=== PATIENT | male | born 1955 | race Caucasian/White ===

== ENCOUNTER 2016-11-08 13:59 | Inpatient (IN) | payer OTHER ==
[~2016-11-08] VITALS: Ht 177.8 cm; Wt 95.8 kg
[~2016-11-08 13:59] MED LIST: HYDR-971 PO
[2016-11-08 16:29] VITALS: BP 176/109
[2016-11-08] MEDS ORDERED: FUROSEMIDE 40 MG/4 ML VIAL IVP ONE (16:45)
[2016-11-08] MEDS ORDERED: HYDR-2666 PO (17:15)
[2016-11-08] MEDS ORDERED: TRAM50TA PO (17:15)
[2016-11-08] MEDS ORDERED: LEDI1TAB PO (17:17)
[2016-11-08] MEDS ORDERED: MELA3TAB PO (17:17)
[2016-11-08] MEDS ORDERED: TRAZ50TA15 PO (17:17)
[2016-11-08] MEDS ORDERED: THIA100T43 PO (17:17)
[2016-11-08] MEDS: ENOXAPARIN 40 MG/0.4 ML DISP.SYRIN. SQ SCH ×2 (17:26→17:29)
[2016-11-08 17:29] LABS: HCO3 ABG 26 mmol/L (21-28); PCO2 ABG 37 mmHg (35-46); PH ABG 7.47 (7.35-7.45); PO2 ABG 102 mmHg (65-108); SAT O2 ABG 98 % (92-99)
[2016-11-08 17:31] LABS: FIO2 ABG 36
[2016-11-08] MEDS ORDERED: HYDROCODONE/APAP 5/325MG TABLET. PO PRN (18:15)
[2016-11-08] MEDS ORDERED: TRAMADOL 50 MG TABLET. PO SCH (18:15)
[2016-11-08] MEDS ORDERED: ALPRAZOLAM 0.5 MG TABLET PO PRN (19:15)
[2016-11-08] MEDS: HYDROCODONE/APAP 5/325MG TABLET. PO PRN (19:39)
[2016-11-08 19:40] VITALS: BP 172/109
[2016-11-08] MEDS ORDERED: VANCOMYCIN PER PHARMACY MC PRN (20:30)
[2016-11-08] MEDS ORDERED: PIP/TAZO PER PHARMACY MC PRN (20:30)
[2016-11-08] MEDS ORDERED: CALC667T PO (20:39)
[2016-11-08] MEDS ORDERED: FOLI1TAB16 PO (20:39)
[2016-11-08] MEDS ORDERED: POLY17PO5 PO (20:39)
[2016-11-08] MEDS ORDERED: TIZA4CAP PO (20:39)
[2016-11-08] MEDS ORDERED: CEPH-263 PO (20:39)
[2016-11-08] MEDS ORDERED: ERGO1TAB PO (20:39)
[2016-11-08] MEDS: traZODone 50 MG TABLET. PO SCH (21:00)
[2016-11-08] MEDS ORDERED: NON FORMULARY ITEM (Melatonin 2 TAB) PO SCH (21:00)
[2016-11-08 23:10] VITALS: BP 155/108
[2016-11-08] MEDS ORDERED: tiZANidine 4 MG TABLET. PO PRN (23:45)
--- NOTE | 2016-11-09 00:06 | HP ---
ADMIT DATE: 11/08/2016 CHIEF COMPLAINT: Shortness of breath. HISTORY OF PRESENT ILLNESS: The patient is a pleasant 60-year-old male who has known heart failure, sees Dr. Myers for this. He has a permanent pacemaker as well. Basically, he presents with progression of shortness of breath and weakness. I have discussed the case with the ER physician at [facility], we are accepting as a transfer. PAST MEDICAL HISTORY: CHF, anemia, chronic pain, insomnia. ALLERGIES: Omeprazole. FAMILY HISTORY: Hypertension. SOCIAL HISTORY: Does not drink, smoke or take drugs. MEDICATIONS: Reviewed, please refer to the MRAD. REVIEW OF SYSTEMS: GENERAL: No history of weight change, weakness or fevers. SKIN: No bruising, hair changes or rashes. EYES: No blurred, double or loss of vision. NOSE AND THROAT: No history of nosebleeds, hoarseness or sore throat. HEART: No history of palpitations, chest pain or shortness of breath on exertion. LUNGS: Shortness of breath. GASTROINTESTINAL: Denies changes in appetite, nausea, vomiting, diarrhea or constipation. GENITOURINARY: No history of frequency, urgency, hesitancy or nocturia. NEUROLOGIC: Denies history of numbness, tingling, tremor or weakness. PSYCHIATRIC: No history of panic, anxiety or depression. ENDOCRINE: No history of heat or cold intolerance, polyuria or polydipsia. EXTREMITIES: Denies muscle weakness, joint pain, pain on walking or stiffness. PHYSICAL EXAMINATION: VITAL SIGNS: Temperature afebrile, pulse 97, respirations 18, blood pressure 144/90. GENERAL: He is alert, cooperative, complaining of shortness of breath. HEART: Normal S1, S2 with a soft S3. LUNGS: Bibasilar crackles. ABDOMEN: Soft, positive bowel sounds. EXTREMITIES: Trace edema. SKIN: No rashes. PSYCHIATRIC: He is anxious. VASCULAR: Good capillary refill. ENDOCRINE: No thyromegaly. LYMPHATICS: No cervical nodes. HEMATOPOIETIC: No bruising. LABORATORY DATA: Reviewed. ASSESSMENT AND PLAN: Acute on chronic systolic and diastolic heart failure. The patient has been admitted. We will check serial enzymes, serial EKGs, IV Lasix. Consult Dr. Myers. Resume home medicines, frequent labs, cardiac monitoring. PROGNOSIS: Guarded. MARIANNAL Derek ALBERT DO DR: Rosi JOB#: [id number] / [id number]
[2016-11-09] MEDS: PIPERACILLIN/TAZOBACTAM 3.375 GM in IV NORMAL SALINE 50ML 50 ML IV SCH ×4 (00:37→17:49)
[2016-11-09] MEDS: HYDROCODONE/APAP 5/325MG TABLET. PO PRN ×4 (03:27→21:15)
[2016-11-09] MEDS: ONDANSETRON PF 4 MG/2 ML VIAL. IV PRN (03:27)
[2016-11-09 03:45] VITALS: BP 152/112
[2016-11-09 04:02] LABS: BASO # 0.1 x10^3/uL (0.0-0.2); BASO % 1 % (0-3); EOS % 2 % (0-3); HEMATOCRIT 26.2 % (39.0-53.0); HEMOGLOBIN 8.5 g/dL (13.0-17.5); LYMPH # 1.2 x10^3/uL (1.0-4.8); LYMPH % 14 % (24-48); MEAN CORPUSCULAR HEMOGLOBIN 29 pg (25-35); MEAN CORPUSCULAR HGB CONC 32 g/dL (31-37); MEAN CORPUSCULAR VOLUME 89 fL (79-100); MONO % 13 % (0-9); NEUT % 70 % (31-73); PLATELET COUNT 144 x10^3/uL (140-400); RED BLOOD COUNT 2.95 x10^6/uL (4.30-5.70); WHITE BLOOD COUNT 8.6 x10^3/uL (4.0-11.0)
[2016-11-09 04:18] LABS: CALCIUM 8.8 mg/dL (8.5-10.1); CREATININE 2.2 mg/dL (0.7-1.3); GFR 30.8
[2016-11-09 07:47] VITALS: BP 134/96
--- NOTE | 2016-11-09 08:59 | RAD ---
Indication congestive heart failure. Difficulty breathing. Evaluate for potential pneumonia. Noncontrast imaging through the chest was performed. No prior CT imaging of the chest is available. Note is made of a plain film examination of the chest 09/12/2013. Imaging through the upper abdomen demonstrates some ascitic fluid. An acute finding in the visualized upper abdomen is not seen. Old right rib fractures are noted. There is generalized cardiomegaly, mild. There is some mild mediastinal adenopathy. Definite pathologic hilar or mediastinal adenopathy is not seen. There are small bilateral pleural effusions. There is diffuse right pleural thickening, likely chronic. There are patchy bilateral pulmonary infiltrates most pronounced in the left upper lobe. Findings may reflect atypical congestive heart failure or an inflammatory process, pneumonia. The later is somewhat favored. Scattered areas of volume loss are seen in the right lung compatible with atelectasis pneumonia or scar. A dominant soft tissue mass in either lung is not seen. IMPRESSION: Small bilateral pleural effusions. Pleural thickening in the right lung, likely chronic. Patchy groundglass opacities in the left upper lobe. See above discussion. An inflammatory process is somewhat favored accounting for the infiltrates. Small amount of abdominal ascites Volume loss in the right lung most compatible with or scar or atelectasis. Pneumonia is not entirely excluded. PQRS Compliance Statement: One or more of the following individualized dose reduction techniques were utilized for this examination: 1. Automated exposure control 2. Adjustment of the mA and/or kV according to patient size 3. Use of iterative reconstruction technique
[2016-11-09] MEDS ORDERED: FUROSEMIDE 40 MG/4 ML VIAL IVP SCH (09:00)
[2016-11-09] MEDS: NON FORMULARY ITEM (Ledipasvir/Sofosbuvir (Harvoni 90-400 mg Tablet) 1 TAB) PO SCH (09:00)
--- NOTE | 2016-11-09 10:01 | PDOC ---
Infectious Disease Note ROS ROS GEN: Denies fevers, chills, sweats HEENT: Denies blurred vision, sore throat CV: Denies chest pain RESP: Denies shortness of air, cough GI: Denies n/v/d NEURO: Denies confusion, dizziness MSK: Denies weakness, joint pain/swelling Vital Sign Vital Signs Vital Signs Date Time Temp Pulse Resp B/P Pulse Ox O2 Delivery O2 Flow Rate FiO2 11/09/16 07:47 98.1 98 26 134/96 98 Room Air 98.1 11/09/16 04:27 5.0 Physical Exam PHYSICAL EXAM GENERAL: NAD, Alert HEENT: PERRL, OC/OP NECK: Supple, no JVD, no LN LUNGS: Clear HEART: S1S2, no gallop, no murmur ABD: Soft, NT, no organomegaly, no rebound EXT: No edema, no cyanosis VOCATIONAL PLACEMENT SPECIALIST: Alert, oriented x 3, no focal neurologic deficit SKIN: No rash IV: ok Labs Lab Laboratory Tests Test 11/08/16 17:27 11/08/16 20:20 11/09/16 03:54 O2 Saturation 98% (92-99) Arterial Blood pH 7.47 (7.35-7.45) Arterial Blood pCO2 at Patient Temp 37mmHg (35-46) Arterial Blood pO2 at Patient Temp 102mmHg (65-108) Arterial Blood HCO3 26mmol/L (21-28) Arterial Blood Base Excess 3mmol/L (-3-3) FiO2 36 Lactic Acid Level 1.5mmol/L (0.4-2.0) 1.1mmol/L (0.4-2.0) White Blood Count 8.6x10^3/uL (4.0-11.0) Red Blood Count 2.95x10^6/uL (4.30-5.70) Hemoglobin 8.5g/dL (13.0-17.5) Hematocrit 26.2% (39.0-53.0) Mean Corpuscular Volume 89fL (79-100) Mean Corpuscular Hemoglobin 29pg (25-35) Mean Corpuscular Hemoglobin Concent 32g/dL (31-37) Red Cell Distribution Width 18.0% (11.5-14.5) Platelet Count 144x10^3/uL (140-400) Neutrophils (%) (Auto) 70% (31-73) Lymphocytes (%) (Auto) 14% (24-48) Monocytes (%) (Auto) 13% (0-9) Eosinophils (%) (Auto) 2% (0-3) Basophils (%) (Auto) 1% (0-3) Neutrophils # (Auto) 6.0x10^3uL (1.8-7.7) Lymphocytes # (Auto) 1.2x10^3/uL (1.0-4.8) Monocytes # (Auto) 1.1x10^3/uL (0.0-1.1) Eosinophils # (Auto) 0.1x10^3/uL (0.0-0.7) Basophils # (Auto) 0.1x10^3/uL (0.0-0.2) Sodium Level 141mmol/L (136-145) Potassium Level 4.0mmol/L (3.5-5.1) Chloride Level 103mmol/L (98-107) Carbon Dioxide Level 28mmol/L (21-32) Anion Gap 10 (6-14) Blood Urea Nitrogen 66mg/dL (8-26) Creatinine 2.2mg/dL (0.7-1.3) Estimated GFR (Cockcroft-Gault) 30.8 Glucose Level 126mg/dL (70-99) Calcium Level 8.8mg/dL (8.5-10.1) Troponin I Quantitative 0.146ng/mL (0.000-0.055) Objective Assessment Lactic acidosis - improved CHF MAIA ? Pneumonia H/o Staph aureus Plan Plan of Care Cont Zosyn Change to Zyvox Add Doxy F/u labs and cults Await Pul eval Check HIV Thank you # [id number] RAFY PATRICIA MD Nov 09, 2016 10:01
[2016-11-09] MEDS: THIAMINE 100 MG TABLET. PO SCH (10:03)
[2016-11-09] MEDS: CALCIUM ACETATE 667 MG CAPSULE PO SCH ×3 (10:03→17:00)
--- NOTE | 2016-11-09 10:04 | PDOC2 ---
CONSULT Date of Consult Date of Consult DATE: 11/09/16 TIME: 09:49 Reason for Consult Reason for Consult: CHF Referring Physician Referring Physician: Albin Identification/Chief Complaint Chief Complaint Dyspnea History of Present Illness Reason for Visit: Patient is a homeless well known to me with a history of CHF and permanent pacemaker admitted for progressive dyspnea. Patient is a poor historian but reports a recent hospitalization at with discharge on 11/04/2016 secondary to a trauma/fall with subsequent development of complicated pneumonia requiring chest tube. Since his discharge on 11/04/2016 he has been experiencing progressive weakness and dyspnea. He was reportedly on dialysis at but had them stop secondary to "draining all my energy". He is currently homeless and has limited resources available. Since admission he is doing a little better but continues to report some shortness of breath and chest pain that sounds pleuritic in nature as well as some pain near the site of the chest tubes. Nursing reports he was tripoding with some increased work a breathing, a ABG was completed and was found to be essentially normal. He denies any cardiac chest pain but did have a troponin of 0.146. Past Medical History Cardiovascular: CHF Heme/Onc: Other (Anemia) Psych: Anxiety, Other (Insomnia) Musculoskeletal: Other (Chronic pain) Past Surgical History Past Surgical History: Pacemaker Family History Family History: Hypertension Social History Social History Denies current alcohol, drug or tobacco use Lives: Homeless Current Medications Current Medications Current Medications Furosemide (Lasix) 40 mg 1X ONCE IVP Last administered on 11/08/16 17:26; Start 11/08/16 at 16:45; Stop 11/08/16 at 16:48; Status DC Enoxaparin Sodium (Lovenox 40mg Syringe) 40 mg Q24H SQ Last administered on 11/08 17:26; Start 11/08/16 at 17:00 Acetaminophen/ Hydrocodone Bitart (Lortab 5/325) 1 tab PRN Q4HRS PRN PO PAIN Last administered on 11/09/16 03:27; Start 11/08/16 at 18:15 Acetaminophen/ Hydrocodone Bitart (Lortab 5/325) 1 tab Q6HRS PRN PO PAIN; Start 11/08/16 at 18:15; Stop 11/08/16 at 18:15; Status DC Thiamine HCl (Vitamin B-1) 100 mg DAILY PO ; Start 11/09/16 at 09:00 Tramadol HCl (Ultram) 50 mg PRN Q6HRS PO ; Start 11/08/16 at 18:15 Trazodone HCl (Desyrel) 50 mg QHS PO ; Start 11/08/16 at 21:00 Non-Formulary Medication 1 tab DAILY PO ; Start 11/09/16 at 09:00; Status UNV Non-Formulary Medication 2 tab QHS PO ; Start 11/08/16 at 21:00; Status UNV Alprazolam (Xanax) 0.5 mg PRN Q6HRS PRN PO ANXIETY / AGITATION Last administered on 11/08/16 19:38; Start 11/08/16 at 19:15 Vancomycin HCl (Vanco Per Pharmacy) 1 each PRN DAILY PRN MC SEE COMMENTS Last administered on 11/08/16 20:42; Start 11/08/16 at 20:30; Stop 11/09/16 at 09:44; Status DC Piperacillin Sod/ Tazobactam Sod 1 each 1 each PRN DAILY PRN MC SEE COMMENTS; Start 11/08/16 at 20:30 Vancomycin HCl/ Sodium Chloride (Iv Sodium Chloride 0.9% 500ml Bag) 500 ml @ 250 mls/hr Q24H IV ; Start 11/09/16 at 13:00; Stop 11/09/16 at 13:00; Status DC Vancomycin HCl 1 each 1 each 1X ONCE MC ; Start 11/10/16 at 12:30; Stop 11/10/16 at 12:31 Piperacillin Sod/ Tazobactam Sod/ Sodium Chloride (Zosyn/Iv Sodium Chloride 0.9 % 50ml) 50 ml @ 100 mls/hr Q6HRS IV Last administered on 11/09/16 06:45; Start 11/09/16 at 00:00 Calcium Acetate (Phoslo) 1,334 mg TIDWMEALS PO ; Start 11/09/16 at 08:00 Non-Formulary Medication 1 each QTH PO ; Start 11/11/16 at 16:00; Status UNV Tizanidine HCl (Zanaflex) 4 mg PRN Q8HRS PRN PO MUSCLE SPASMS; Start 11/08/16 at 23:45 Furosemide (Lasix) 40 mg DAILY IVP ; Start 11/09/16 at 09:00 Ondansetron HCl (Zofran) 4 mg PRN Q6HRS PRN IV NAUSEA/VOMITING Last administered on 11/09/16t 03:27; Start 11/09/16 at 02:45 Linezolid (Zyvox) 600 mg BID PO ; Start 11/09/16 at 10:00; Status UNV Active Scripts Active [place] 5-325 Tablet (Acetaminophen/Hydrocodone Bitart) 1 Each Tablet 1 Each PO Q6HRS PRN Reported Tizanidine Hcl 4 Mg Capsule 4 Mg PO PRN Q8HRS PRN Miralax (Polyethylene Glycol 3350) 17 Gm Powd.pack 1 Packet PO DAILY Cafergot Tablet (Ergotamine Tartrate/Caffeine) 1 Each Tablet 1 Each PO QTH Folic Acid 1 Mg Tablet 1 Tab PO DAILY Keflex (Cephalexin) 250 Mg Capsule 1 Cap PO Q12HR Calcium Acetate 667 Mg Tablet 2 Cap PO TIDWMEALS Harv[place] 90-400 mg Tablet (Ledipasvir/Sofosbuvir) 1 Each Tablet 1 Tab PO DAILY Trazodone Hcl 50 Mg Tablet 1 Tab PO QHS B-1 (Thiamine HCl) 100 Mg Tablet 100 Mg PO DAILY Melatonin 3 Mg Tablet 2 Tab PO QHS Hydrocodone-Apap 5-325 (Hydrocodone Bit/Acetaminophen) 1 Each Tablet 1 Tab PO PRN Q4HRS PRN Tramadol Hcl 50 Mg Tablet 1 Tab PO PRN Q6HRS Allergies Allergies: Coded Allergies: omeprazole (Verified Allergy, Intermediate, 11/09/16) ROS General: YES: Fatigue PSYCHOLOGICAL ROS: YES: Anxiety Respiratory: YES: Cough, Pleuritic Pain, Shortness of breath Neurological: Yes Headaches Physical Exam General: Alert, No acute distress HEENT: Atraumatic Heart: Regular rate, Normal S1, Normal S2 Abdomen: Normal bowel sounds Extremities: No clubbing, No cyanosis, Other (mild edema of lower extremities, improving) Skin: Other (two healing wounds surreounded by mild erythema secondary to recent chest tube on right) Neuro: Other (no gross focal deficits) Vitals VITALS Vital Signs Date Time Temp Pulse Resp B/P Pulse Ox O2 Delivery O2 Flow Rate FiO2 11/09/16 07:47 98.1 98 26 134/96 98 Room Air 98.1 11/09/16 04:27 5.0 Labs Labs Laboratory Tests Test 11/08/16 17:27 11/08/16 20:20 11/09/16 03:54 O2 Saturation 98% (92-99) Arterial Blood pH 7.47 (7.35-7.45) Arterial Blood pCO2 at Patient Temp 37mmHg (35-46) Arterial Blood pO2 at Patient Temp 102mmHg (65-108) Arterial Blood HCO3 26mmol/L (21-28) Arterial Blood Base Excess 3mmol/L (-3-3) FiO2 36 Lactic Acid Level 1.5mmol/L (0.4-2.0) 1.1mmol/L (0.4-2.0) White Blood Count 8.6x10^3/uL (4.0-11.0) Red Blood Count 2.95x10^6/uL (4.30-5.70) Hemoglobin 8.5g/dL (13.0-17.5) Hematocrit 26.2% (39.0-53.0) Mean Corpuscular Volume 89fL (79-100) Mean Corpuscular Hemoglobin 29pg (25-35) Mean Corpuscular Hemoglobin Concent 32g/dL (31-37) Red Cell Distribution Width 18.0% (11.5-14.5) Platelet Count 144x10^3/uL (140-400) Neutrophils (%) (Auto) 70% (31-73) Lymphocytes (%) (Auto) 14% (24-48) Monocytes (%) (Auto) 13% (0-9) Eosinophils (%) (Auto) 2% (0-3) Basophils (%) (Auto) 1% (0-3) Neutrophils # (Auto) 6.0x10^3uL (1.8-7.7) Lymphocytes # (Auto) 1.2x10^3/uL (1.0-4.8) Monocytes # (Auto) 1.1x10^3/uL (0.0-1.1) Eosinophils # (Auto) 0.1x10^3/uL (0.0-0.7) Basophils # (Auto) 0.1x10^3/uL (0.0-0.2) Sodium Level 141mmol/L (136-145) Potassium Level 4.0mmol/L (3.5-5.1) Chloride Level 103mmol/L (98-107) Carbon Dioxide Level 28mmol/L (21-32) Anion Gap 10 (6-14) Blood Urea Nitrogen 66mg/dL (8-26) Creatinine 2.2mg/dL (0.7-1.3) Estimated GFR (Cockcroft-Gault) 30.8 Glucose Level 126mg/dL (70-99) Calcium Level 8.8mg/dL (8.5-10.1) Troponin I Quantitative 0.146ng/mL (0.000-0.055) Laboratory Tests Test 11/08/16 17:27 11/08/16 20:20 11/09/16 03:54 O2 Saturation 98% (92-99) Arterial Blood pH 7.47 (7.35-7.45) Arterial Blood pCO2 at Patient Temp 37mmHg (35-46) Arterial Blood pO2 at Patient Temp 102mmHg (65-108) Arterial Blood HCO3 26mmol/L (21-28) Arterial Blood Base Excess 3mmol/L (-3-3) FiO2 36 Lactic Acid Level 1.5mmol/L (0.4-2.0) 1.1mmol/L (0.4-2.0) White Blood Count 8.6x10^3/uL (4.0-11.0) Red Blood Count 2.95x10^6/uL (4.30-5.70) Hemoglobin 8.5g/dL (13.0-17.5) Hematocrit 26.2% (39.0-53.0) Mean Corpuscular Volume 89fL (79-100) Mean Corpuscular Hemoglobin 29pg (25-35) Mean Corpuscular Hemoglobin Concent 32g/dL (31-37) Red Cell Distribution Width 18.0% (11.5-14.5) Platelet Count 144x10^3/uL (140-400) Neutrophils (%) (Auto) 70% (31-73) Lymphocytes (%) (Auto) 14% (24-48) Monocytes (%) (Auto) 13% (0-9) Eosinophils (%) (Auto) 2% (0-3) Basophils (%) (Auto) 1% (0-3) Neutrophils # (Auto) 6.0x10^3uL (1.8-7.7) Lymphocytes # (Auto) 1.2x10^3/uL (1.0-4.8) Monocytes # (Auto) 1.1x10^3/uL (0.0-1.1) Eosinophils # (Auto) 0.1x10^3/uL (0.0-0.7) Basophils # (Auto) 0.1x10^3/uL (0.0-0.2) Sodium Level 141mmol/L (136-145) Potassium Level 4.0mmol/L (3.5-5.1) Chloride Level 103mmol/L (98-107) Carbon Dioxide Level 28mmol/L (21-32) Anion Gap 10 (6-14) Blood Urea Nitrogen 66mg/dL (8-26) Creatinine 2.2mg/dL (0.7-1.3) Estimated GFR (Cockcroft-Gault) 30.8 Glucose Level 126mg/dL (70-99) Calcium Level 8.8mg/dL (8.5-10.1) Troponin I Quantitative 0.146ng/mL (0.000-0.055) Assessment/Plan Assessment/Plan Patient is presenting with acute on chronic CHF and possible sepsis following a recent hospitalization for a trauma and subsequent development of complex pneumonia requiring chest tube drainage. He reports continued dyspnea with some improvement on lasix since admission. Initial troponin was 0.146 and will continue to follow; EKG showed some evidence of possible septal wall injury. We'll get an echocardiogram to evaluate the present left ventricular function. I would recommend to 2 albumin and Lasix in order to attempt to remove fluid. Thank you very much for asking me to participate in the care of this patient FERNANDA ANDERSON MD Nov 09, 2016 10:04
[2016-11-09] MEDS ORDERED: ASPIRIN ENTERIC COATED 325 MG TABLET.DR. PO PRN (10:15)
[2016-11-09 11:00] VITALS: BP 141/95
--- NOTE | 2016-11-09 11:37 | PDOC ---
Provider Note Provider Note dictated EVONNE ALBA MD Nov 09, 2016 11:37
--- NOTE | 2016-11-09 11:44 | PDOC ---
PROGRESS NOTES Chief Complaint Chief Complaint cc: sob A/P 1. Dyspnea Multifactorial. 2. Recent hx of pneumonia with parapneumonic, s/p chest tube with VAT 3. LE edema 3. ? Pneumonia 4. physical debility 5. malnutrition Plan on Zyvox add iv albumin cardiology is following d/w pulmonology, supplemental oxygen follow cultures if drawn obtain records from [facility] consult prognosis guarded. labs reviewed intake and out put History of Present Illness History of Present Illness sob no fever no chills appears very weak Vitals Vitals Vital Signs Date Time Temp Pulse Resp B/P Pulse Ox O2 Delivery O2 Flow Rate FiO2 11/09/16 10:02 22 98 Nasal Cannula 5.0 11/09/16 07:47 98.1 98 134/96 98.1 Physical Exam General: Alert, Oriented X3, No acute distress Heart: Regular rate, Normal S1, Normal S2 Lungs: Clear Abdomen: Normal bowel sounds, Other (distended. ) Extremities: No clubbing, No cyanosis, Other (mild edema of lower extremities, improving) Skin: Other (two healing wounds surreounded by mild erythema secondary to recent chest tube on right) Labs LABS Laboratory Tests Test 11/08/16 17:27 11/08/16 20:20 11/09/16 03:54 11/09/16 09:30 O2 Saturation 98% (92-99) Arterial Blood pH 7.47 (7.35-7.45) Arterial Blood pCO2 at Patient Temp 37mmHg (35-46) Arterial Blood pO2 at Patient Temp 102mmHg (65-108) Arterial Blood HCO3 26mmol/L (21-28) Arterial Blood Base Excess 3mmol/L (-3-3) FiO2 36 Lactic Acid Level 1.5mmol/L (0.4-2.0) 1.1mmol/L (0.4-2.0) White Blood Count 8.6x10^3/uL (4.0-11.0) Red Blood Count 2.95x10^6/uL (4.30-5.70) Hemoglobin 8.5g/dL (13.0-17.5) Hematocrit 26.2% (39.0-53.0) Mean Corpuscular Volume 89fL (79-100) Mean Corpuscular Hemoglobin 29pg (25-35) Mean Corpuscular Hemoglobin Concent 32g/dL (31-37) Red Cell Distribution Width 18.0% (11.5-14.5) Platelet Count 144x10^3/uL (140-400) Neutrophils (%) (Auto) 70% (31-73) Lymphocytes (%) (Auto) 14% (24-48) Monocytes (%) (Auto) 13% (0-9) Eosinophils (%) (Auto) 2% (0-3) Basophils (%) (Auto) 1% (0-3) Neutrophils # (Auto) 6.0x10^3uL (1.8-7.7) Lymphocytes # (Auto) 1.2x10^3/uL (1.0-4.8) Monocytes # (Auto) 1.1x10^3/uL (0.0-1.1) Eosinophils # (Auto) 0.1x10^3/uL (0.0-0.7) Basophils # (Auto) 0.1x10^3/uL (0.0-0.2) Sodium Level 141mmol/L (136-145) Potassium Level 4.0mmol/L (3.5-5.1) Chloride Level 103mmol/L (98-107) Carbon Dioxide Level 28mmol/L (21-32) Anion Gap 10 (6-14) Blood Urea Nitrogen 66mg/dL (8-26) Creatinine 2.2mg/dL (0.7-1.3) Estimated GFR (Cockcroft-Gault) 30.8 Glucose Level 126mg/dL (70-99) Calcium Level 8.8mg/dL (8.5-10.1) Troponin I Quantitative 0.146ng/mL (0.000-0.055) 0.137ng/mL (0.000-0.055) Comment Review of Relevant I have reviewed the following items kyra (where applicable) has been applied. Labs Laboratory Tests Test 11/08/16 17:27 11/08/16 20:20 11/09/16 03:54 11/09/16 09:30 O2 Saturation 98% (92-99) Arterial Blood pH 7.47 (7.35-7.45) Arterial Blood pCO2 at Patient Temp 37mmHg (35-46) Arterial Blood pO2 at Patient Temp 102mmHg (65-108) Arterial Blood HCO3 26mmol/L (21-28) Arterial Blood Base Excess 3mmol/L (-3-3) FiO2 36 Lactic Acid Level 1.5mmol/L (0.4-2.0) 1.1mmol/L (0.4-2.0) White Blood Count 8.6x10^3/uL (4.0-11.0) Red Blood Count 2.95x10^6/uL (4.30-5.70) Hemoglobin 8.5g/dL (13.0-17.5) Hematocrit 26.2% (39.0-53.0) Mean Corpuscular Volume 89fL (79-100) Mean Corpuscular Hemoglobin 29pg (25-35) Mean Corpuscular Hemoglobin Concent 32g/dL (31-37) Red Cell Distribution Width 18.0% (11.5-14.5) Platelet Count 144x10^3/uL (140-400) Neutrophils (%) (Auto) 70% (31-73) Lymphocytes (%) (Auto) 14% (24-48) Monocytes (%) (Auto) 13% (0-9) Eosinophils (%) (Auto) 2% (0-3) Basophils (%) (Auto) 1% (0-3) Neutrophils # (Auto) 6.0x10^3uL (1.8-7.7) Lymphocytes # (Auto) 1.2x10^3/uL (1.0-4.8) Monocytes # (Auto) 1.1x10^3/uL (0.0-1.1) Eosinophils # (Auto) 0.1x10^3/uL (0.0-0.7) Basophils # (Auto) 0.1x10^3/uL (0.0-0.2) Sodium Level 141mmol/L (136-145) Potassium Level 4.0mmol/L (3.5-5.1) Chloride Level 103mmol/L (98-107) Carbon Dioxide Level 28mmol/L (21-32) Anion Gap 10 (6-14) Blood Urea Nitrogen 66mg/dL (8-26) Creatinine 2.2mg/dL (0.7-1.3) Estimated GFR (Cockcroft-Gault) 30.8 Glucose Level 126mg/dL (70-99) Calcium Level 8.8mg/dL (8.5-10.1) Troponin I Quantitative 0.146ng/mL (0.000-0.055) 0.137ng/mL (0.000-0.055) Laboratory Tests Test 11/08/16 17:27 11/08/16 20:20 11/09/16 03:54 11/09/16 09:30 O2 Saturation 98% (92-99) Arterial Blood pH 7.47 (7.35-7.45) Arterial Blood pCO2 at Patient Temp 37mmHg (35-46) Arterial Blood pO2 at Patient Temp 102mmHg (65-108) Arterial Blood HCO3 26mmol/L (21-28) Arterial Blood Base Excess 3mmol/L (-3-3) FiO2 36 Lactic Acid Level 1.5mmol/L (0.4-2.0) 1.1mmol/L (0.4-2.0) White Blood Count 8.6x10^3/uL (4.0-11.0) Red Blood Count 2.95x10^6/uL (4.30-5.70) Hemoglobin 8.5g/dL (13.0-17.5) Hematocrit 26.2% (39.0-53.0) Mean Corpuscular Volume 89fL (79-100) Mean Corpuscular Hemoglobin 29pg (25-35) Mean Corpuscular Hemoglobin Concent 32g/dL (31-37) Red Cell Distribution Width 18.0% (11.5-14.5) Platelet Count 144x10^3/uL (140-400) Neutrophils (%) (Auto) 70% (31-73) Lymphocytes (%) (Auto) 14% (24-48) Monocytes (%) (Auto) 13% (0-9) Eosinophils (%) (Auto) 2% (0-3) Basophils (%) (Auto) 1% (0-3) Neutrophils # (Auto) 6.0x10^3uL (1.8-7.7) Lymphocytes # (Auto) 1.2x10^3/uL (1.0-4.8) Monocytes # (Auto) 1.1x10^3/uL (0.0-1.1) Eosinophils # (Auto) 0.1x10^3/uL (0.0-0.7) Basophils # (Auto) 0.1x10^3/uL (0.0-0.2) Sodium Level 141mmol/L (136-145) Potassium Level 4.0mmol/L (3.5-5.1) Chloride Level 103mmol/L (98-107) Carbon Dioxide Level 28mmol/L (21-32) Anion Gap 10 (6-14) Blood Urea Nitrogen 66mg/dL (8-26) Creatinine 2.2mg/dL (0.7-1.3) Estimated GFR (Cockcroft-Gault) 30.8 Glucose Level 126mg/dL (70-99) Calcium Level 8.8mg/dL (8.5-10.1) Troponin I Quantitative 0.146ng/mL (0.000-0.055) 0.137ng/mL (0.000-0.055) Medications Current Medications Furosemide (Lasix) 40 mg 1X ONCE IVP Last administered on 11/08/16 17:26; Start 11/08/16 at 16:45; Stop 11/08/16 at 16:48; Status DC Enoxaparin Sodium (Lovenox 40mg Syringe) 40 mg Q24H SQ Last administered on 11/08 17:26; Start 11/08/16 at 17:00 Acetaminophen/ Hydrocodone Bitart (Lortab 5/325) 1 tab PRN Q4HRS PRN PO PAIN Last administered on 11/09/16 10:02; Start 11/08/16 at 18:15 Acetaminophen/ Hydrocodone Bitart (Lortab 5/325) 1 tab Q6HRS PRN PO PAIN; Start 11/08/16 at 18:15; Stop 11/08/16 at 18:15; Status DC Thiamine HCl (Vitamin B-1) 100 mg DAILY PO Last administered on 11/09/16 10:03 ; Start 11/09/16 at 09:00 Tramadol HCl (Ultram) 50 mg PRN Q6HRS PO ; Start 11/08/16 at 18:15 Trazodone HCl (Desyrel) 50 mg QHS PO ; Start 11/08/16 at 21:00 Non-Formulary Medication 1 tab DAILY PO ; Start 11/09/16 at 09:00; Status UNV Non-Formulary Medication 2 tab QHS PO ; Start 11/08/16 at 21:00; Status UNV Alprazolam (Xanax) 0.5 mg PRN Q6HRS PRN PO ANXIETY / AGITATION Last administered on 11/08/16 19:38; Start 11/08/16 at 19:15 Vancomycin HCl (Vanco Per Pharmacy) 1 each PRN DAILY PRN MC SEE COMMENTS Last administered on 11/08/16 20:42; Start 11/08/16 at 20:30; Stop 11/09/16 at 09:44; Status DC Piperacillin Sod/ Tazobactam Sod 1 each 1 each PRN DAILY PRN MC SEE COMMENTS; Start 11/08/16 at 20:30 Vancomycin HCl/ Sodium Chloride (Iv Sodium Chloride 0.9% 500ml Bag) 500 ml @ 250 mls/hr Q24H IV ; Start 11/09/16 at 13:00; Stop 11/09/16 at 13:00; Status DC Vancomycin HCl 1 each 1 each 1X ONCE MC ; Start 11/10/16 at 12:30; Stop 11/10/16 at 12:31; Status Cancel Piperacillin Sod/ Tazobactam Sod/ Sodium Chloride (Zosyn/Iv Sodium Chloride 0.9 % 50ml) 50 ml @ 100 mls/hr Q6HRS IV Last administered on 11/09/16 06:45; Start 11/09/16 at 00:00 Calcium Acetate (Phoslo) 1,334 mg TIDWMEALS PO Last administered on 11/09/16 10 :03; Start 11/09/16 at 08:00 Non-Formulary Medication 1 each QTH PO ; Start 11/11/16 at 16:00; Status UNV Tizanidine HCl (Zanaflex) 4 mg PRN Q8HRS PRN PO MUSCLE SPASMS; Start 11/08/16 at 23:45 Furosemide (Lasix) 40 mg DAILY IVP Last administered on 11/09/16 10:05; Start 11/09/16 at 09:00 Ondansetron HCl (Zofran) 4 mg PRN Q6HRS PRN IV NAUSEA/VOMITING Last administered on 11/09/16 03:27; Start 11/09/16 at 02:45 Linezolid (Zyvox) 600 mg BID PO ; Start 11/09/16 at 10:00 Aspirin (Ecotrin) 325 mg PRN DAILY PRN PO HEADACHE; Start 11/09/16 at 10:15 Active Scripts Active [place] 5-325 Tablet (Acetaminophen/Hydrocodone Bitart) 1 Each Tablet 1 Each PO Q6HRS PRN Reported Tizanidine Hcl 4 Mg Capsule 4 Mg PO PRN Q8HRS PRN Miralax (Polyethylene Glycol 3350) 17 Gm Powd.pack 1 Packet PO DAILY Cafergot Tablet (Ergotamine Tartrate/Caffeine) 1 Each Tablet 1 Each PO QTH Folic Acid 1 Mg Tablet 1 Tab PO DAILY Keflex (Cephalexin) 250 Mg Capsule 1 Cap PO Q12HR Calcium Acetate 667 Mg Tablet 2 Cap PO TIDWMEALS Harvoni 90-400 mg Tablet (Ledipasvir/Sofosbuvir) 1 Each Tablet 1 Tab PO DAILY Trazodone Hcl 50 Mg Tablet 1 Tab PO QHS B-1 (Thiamine HCl) 100 Mg Tablet 100 Mg PO DAILY Melatonin 3 Mg Tablet 2 Tab PO QHS Hydrocodone-Apap 5-325 (Hydrocodone Bit/Acetaminophen) 1 Each Tablet 1 Tab PO PRN Q4HRS PRN Tramadol Hcl 50 Mg Tablet 1 Tab PO PRN Q6HRS Vitals/I & O Vital Sign - Last 24 Hours 11/08/16 11/08/16 11/08/16 11/08/16 16:29 19:15 19:20 19:39 Temp 97.9 97.9 Pulse 94 Resp 22 20 B/P 176/109 Pulse Ox 94 O2 Delivery Nasal Cannula Nasal Cannula Nasal Cannula Nasal Cannula O2 Flow Rate 4.0 5.0 4.0 5.0 11/08/16 11/08/16 11/08/16 11/08/16 19:40 19:41 20:39 23:10 Temp 98.1 98.7 98.1 98.7 Pulse 80 81 Resp 22 22 B/P 172/109 155/108 Pulse Ox 100 100 100 98 O2 Delivery Nasal Cannula Nasal Cannula Nasal Cannula O2 Flow Rate 10.0 5.0 5.0 11/09/16 11/09/16 11/09/16 11/09/16 03:27 03:45 04:27 07:47 Temp 98.1 98.1 98.1 98.1 Pulse 81 98 Resp 20 20 22 26 B/P 152/112 134/96 Pulse Ox 97 98 O2 Delivery Nasal Cannula Nasal Cannula Nasal Cannula Room Air O2 Flow Rate 5.0 5.0 5.0 11/09/16 10:02 Resp 22 Pulse Ox 98 O2 Delivery Nasal Cannula O2 Flow Rate 5.0 Intake and Output 11/08/16 11/08/16 11/09/16 15:00 23:00 07:00 Intake Total 220 ml 660 ml Output Total 250 ml 200 ml Balance -30 ml 460 ml SELMA SÁNCHEZ MD Nov 09, 2016 11:44
--- NOTE | 2016-11-09 11:59 | CONS ---
DATE OF CONSULTATION: ATTENDING PHYSICIAN: Dr. Talamantes. REASON FOR CONSULTATION: Dyspnea. HISTORY OF PRESENT ILLNESS: The patient is a 60-year-old male who has a pacemaker, sees Dr. Myers. He had a very prolonged hospital stay at [facility] where he developed what looks like pneumonia complicated by parapneumonic effusion. He had chest tubes and then eventually had a video-assisted thoracoscopic procedure and decortication. This is as best I could get from the history from the patient. He did not have any insurance, as a result he could not afford to go to rehab place and was sent home to a hotel. He said he stayed there for two days and then came back for dyspnea, weakness. He has no significant cough, no fever, no chills, no chest pain. He has lower extremity edema. His BUN was 66 and a creatinine of 2.2. The patient underwent imaging study for an abnormal chest x-ray, which showed bilateral diffuse infiltrates. I have reviewed CT chest. There are small bilateral pleural effusions, some of them are organized. There is pleural thickening in the right lung, which appears to be chronic. There are patchy ground glass opacities in the left upper lobe, which could be inflammatory. There is a small amount of abdominal ascites and atelectasis in the right lower lobe as well. Consultation requested for further evaluation and management. PAST MEDICAL HISTORY: Significant for history of CHF, anemia, pacemaker, history of chronic pain, insomnia. Never smoked. PAST SURGICAL HISTORY: Recent VAT and possible decortication. ALLERGIES: OMEPRAZOLE. FAMILY HISTORY: Hypertension. SOCIAL HISTORY: Nonsmoker. MEDICATIONS: Reviewed as listed in the MRAD including antibiotic, Zosyn and Zyvox. PHYSICAL EXAMINATION: GENERAL: He appears to be weak. VITAL SIGNS: Pulse ox 98% on 5 liters, afebrile, blood pressure is stable. HEENT: Sclerae nonicteric. NECK: Supple. LUNGS: Diminished breath sounds. CARDIOVASCULAR: Regular rate and rhythm. ABDOMEN: Soft. EXTREMITIES: With 3+ pitting edema bilaterally. LABORATORY DATA: Reviewed. Troponin 0.146, BUN 66, creatinine 2.2. White cell count 8.6, hemoglobin 8.5, platelets are 144. IMPRESSION: 1. Dyspnea secondary to most likely from weakness due to recent prolonged hospitalization. He may have mild pneumonitis, but all the findings seen on the CT chest appear to be chronic. 2. Recent prolonged hospitalization at with pneumonia with parapneumonic effusion, requiring chest tube and then later video-assisted thoracoscopy with decortication for possible empyema. The CT chest shows chronic pleural thickening and parenchymal abnormalities with some atelectasis and they all appeared to be chronic. 3. No significant history of tobacco use. 4. Lower extremity edema with renal insufficiency, most likely related to hypoalbuminemia and low oncotic pressure. RECOMMENDATIONS: 1. Continue with present oxygen. 2. Antibiotics were initiated by Infectious Disease and can be deescalated soon. 3. Obtain albumin level and improve nutritional status. 4. Follow renal recommendation. 5. From a pulmonary standpoint, I do not have much to offer. He would benefit from a skilled care, but unfortunately he lacks any financial help to be able to transfer to skilled care. Please call me for any further help, otherwise I will see him on a p.r.n. basis. EVONNE ALBA MD DR: FLORENCIO/jose JOB#: [id number] / [id number]
[2016-11-09] MEDS ORDERED: ALBUMIN HUMAN 25% 100 ML IV ONE (12:15)
[2016-11-09] MEDS: LINEZOLID 600 MG TABLET PO SCH ×2 (12:34→21:13)
[2016-11-09] MEDS ORDERED: VANCOMYCIN 1.5 GM in IV NORMAL SALINE 500ML BAG 500 ML IV SCH (13:00)
[2016-11-09 15:59] VITALS: BP 144/98
[2016-11-09 19:42] VITALS: BP 144/95
[2016-11-09] MEDS: FAMOTIDINE 20 MG TABLET. PO SCH (21:12)
[2016-11-09] MEDS: traZODone 50 MG TABLET. PO SCH (21:12)
[2016-11-09] MEDS: ALBUMIN HUMAN 25% 100 ML IV SCH (21:15)
[2016-11-09] MEDS: FUROSEMIDE 100 MG/10 ML VIAL IVP SCH (22:43)
[2016-11-09 23:09] VITALS: BP 136/98
[2016-11-10] MEDS: PIPERACILLIN/TAZOBACTAM 3.375 GM in IV NORMAL SALINE 50ML 50 ML IV SCH ×4 (00:44→18:00)
[2016-11-10 02:00] VITALS: BP 138/99
[2016-11-10] MEDS: HYDROCODONE/APAP 5/325MG TABLET. PO PRN ×3 (04:37→21:02)
[2016-11-10 07:32] VITALS: BP 146/113
--- NOTE | 2016-11-10 08:00 | PDOC ---
Infectious Disease Note Subjective Subjective Difficultly urinating - incontinent at times - didn't sleep well . Still some SOA. bloody nose at times ROS ROS GEN: Denies fevers, chills, sweats HEENT: Denies blurred vision, sore throat CV: Denies chest pain GI: Denies n/v/d NEURO: Denies confusion, dizziness MSK: Denies weakness, joint pain/swelling Vital Sign Vital Signs Vital Signs Date Time Temp Pulse Resp B/P Pulse Ox O2 Delivery O2 Flow Rate FiO2 11/10/16 07:32 97.9 86 24 146/113 85 Venturi Mask 3.0 97.9 Physical Exam PHYSICAL EXAM GENERAL: NAD, Alert, sitting up in bed HEENT: PERRL, OC/OP -clear NECK: Supple, no JVD, no LN LUNGS: Clear HEART: S1S2, no gallop, no murmur ABD: Soft, NT, no organomegaly, no rebound EXT: 1 to 2 plus edema, no cyanosis PATHOLOGIST: Alert, oriented x 3, no focal neurologic deficit SKIN: No rash IV: ok Labs Lab Laboratory Tests Test 11/09/16 09:30 11/09/16 13:25 Troponin I Quantitative 0.137ng/mL (0.000-0.055) 0.130ng/mL (0.000-0.055) Albumin 2.7g/dL (3.4-5.0) HIV-1 Antibody Non reactive (Non Reactive) Objective Assessment Lactic acidosis - improved ? urinary retention CHF MAIA ? Pneumonia H/o Staph aureus Plan Plan of Care Cont Zosyn/Zyvox/Doxy for now wean soon May need bladder scan F/u labs and cults Saline nasal wash RAFY PATRICIA MD Nov 10, 2016 08:00
[2016-11-10] MEDS: NON FORMULARY ITEM (Ledipasvir/Sofosbuvir (Harvoni 90-400 mg Tablet) 1 TAB) PO SCH (09:00)
[2016-11-10] MEDS: FAMOTIDINE 20 MG TABLET. PO SCH (09:00)
[2016-11-10] MEDS: POLYETHYLENE GLYCOL 3350 17 GM PACKET. PO SCH ×2 (09:00→12:35)
[2016-11-10] MEDS ORDERED: TRAMADOL 50 MG TABLET. PO PRN (10:00)
--- NOTE | 2016-11-10 10:23 | PDOC ---
PROGRESS NOTES Subjective Subjective Patient reports some continued non cardiac chest pain as well as shortness of breath. Nursing reports the patient has been difficult and at sometimes belligerent towards them and other staff. No new cardiac complaints/ Objective Objective Vital Signs Date Time Temp Pulse Resp B/P Pulse Ox O2 Delivery O2 Flow Rate FiO2 11/10/16 07:32 97.9 86 24 146/113 85 Venturi Mask 3.0 97.9 Intake and Output 11/10/16 07:00 Intake Total 2110 ml Output Total 475 ml Balance 1635 ml Intake Oral 1960 ml IV Total 150 ml Output Urine Total 475 ml # Voids 4 # Bowel Movements 1 Physical Exam Physical Exam cardiac exam unchanged. regular rate and rhythm with S1/S2, no murmur. Mild edema of lower extremities improving. Assessment Assessment Patient presented with dyspnea secondary to acute on chronic CHF and possible sepsis after a recent hospitalization. Patient has been tolerating the lasix and doing well clinically. He is scheduled to get an echocardiogram today. Plan Plan of Care Continue with current medications without change. Will reassess after echo is completed. Will continue to follow, thank you for the consultation. Comment Review of Relevant I have reviewed the following items kyra (where applicable) has been applied. Labs Laboratory Tests Test 11/08/16 17:27 11/08/16 20:20 11/09/16 03:54 11/09/16 09:30 O2 Saturation 98% (92-99) Arterial Blood pH 7.47 (7.35-7.45) Arterial Blood pCO2 at Patient Temp 37mmHg (35-46) Arterial Blood pO2 at Patient Temp 102mmHg (65-108) Arterial Blood HCO3 26mmol/L (21-28) Arterial Blood Base Excess 3mmol/L (-3-3) FiO2 36 Lactic Acid Level 1.5mmol/L (0.4-2.0) 1.1mmol/L (0.4-2.0) White Blood Count 8.6x10^3/uL (4.0-11.0) Red Blood Count 2.95x10^6/uL (4.30-5.70) Hemoglobin 8.5g/dL (13.0-17.5) Hematocrit 26.2% (39.0-53.0) Mean Corpuscular Volume 89fL (79-100) Mean Corpuscular Hemoglobin 29pg (25-35) Mean Corpuscular Hemoglobin Concent 32g/dL (31-37) Red Cell Distribution Width 18.0% (11.5-14.5) Platelet Count 144x10^3/uL (140-400) Neutrophils (%) (Auto) 70% (31-73) Lymphocytes (%) (Auto) 14% (24-48) Monocytes (%) (Auto) 13% (0-9) Eosinophils (%) (Auto) 2% (0-3) Basophils (%) (Auto) 1% (0-3) Neutrophils # (Auto) 6.0x10^3uL (1.8-7.7) Lymphocytes # (Auto) 1.2x10^3/uL (1.0-4.8) Monocytes # (Auto) 1.1x10^3/uL (0.0-1.1) Eosinophils # (Auto) 0.1x10^3/uL (0.0-0.7) Basophils # (Auto) 0.1x10^3/uL (0.0-0.2) Sodium Level 141mmol/L (136-145) Potassium Level 4.0mmol/L (3.5-5.1) Chloride Level 103mmol/L (98-107) Carbon Dioxide Level 28mmol/L (21-32) Anion Gap 10 (6-14) Blood Urea Nitrogen 66mg/dL (8-26) Creatinine 2.2mg/dL (0.7-1.3) Estimated GFR (Cockcroft-Gault) 30.8 Glucose Level 126mg/dL (70-99) Calcium Level 8.8mg/dL (8.5-10.1) Troponin I Quantitative 0.146ng/mL (0.000-0.055) 0.137ng/mL (0.000-0.055) Albumin 2.7g/dL (3.4-5.0) HIV-1 Antibody Non reactive (Non Reactive) Test 11/09/16 13:25 Troponin I Quantitative 0.130ng/mL (0.000-0.055) Laboratory Tests Test 11/09/16 13:25 Troponin I Quantitative 0.130ng/mL (0.000-0.055) Medications Current Medications Furosemide (Lasix) 40 mg 1X ONCE IVP Last administered on 11/08/16 17:26; Start 11/08/16 at 16:45; Stop 11/08/16 at 16:48; Status DC Enoxaparin Sodium (Lovenox 40mg Syringe) 40 mg Q24H SQ Last administered on 11/08 17:26; Start 11/08/16 at 17:00 Acetaminophen/ Hydrocodone Bitart (Lortab 5/325) 1 tab PRN Q4HRS PRN PO MODERATE-SEVERE PAIN Last administered on 11/10/16 04:37; Start 11/08/16 at 18:15 Acetaminophen/ Hydrocodone Bitart (Lortab 5/325) 1 tab Q6HRS PRN PO PAIN; Start 11/08/16 at 18:15; Stop 11/08/16 at 18:15; Status DC Thiamine HCl (Vitamin B-1) 100 mg DAILY PO Last administered on 11/09/16 10:03 ; Start 11/09/16 at 09:00 Tramadol HCl (Ultram) 50 mg PRN Q6HRS PO ; Start 11/08/16 at 18:15; Stop at 09:58; Status DC Trazodone HCl (Desyrel) 50 mg QHS PO Last administered on 11/09/16 21:12; Start 11/08/16 at 21:00 Non-Formulary Medication 1 tab DAILY PO ; Start 11/09/16 at 09:00; Status UNV Non-Formulary Medication 2 tab QHS PO ; Start 11/08/16 at 21:00; Status UNV Alprazolam (Xanax) 0.5 mg PRN Q6HRS PRN PO ANXIETY / AGITATION Last administered on 11/08/16 19:38; Start 11/08/16 at 19:15 Vancomycin HCl (Vanco Per Pharmacy) 1 each PRN DAILY PRN MC SEE COMMENTS Last administered on 11/08/16 20:42; Start 11/08/16 at 20:30; Stop 11/09/16 at 09:44; Status DC Piperacillin Sod/ Tazobactam Sod 1 each 1 each PRN DAILY PRN MC SEE COMMENTS; Start 11/08/16 at 20:30 Vancomycin HCl/ Sodium Chloride (Iv Sodium Chloride 0.9% 500ml Bag) 500 ml @ 250 mls/hr Q24H IV ; Start 11/09/16 at 13:00; Stop 11/09/16 at 13:00; Status DC Vancomycin HCl 1 each 1 each 1X ONCE MC ; Start 11/10/16 at 12:30; Stop 11/10/16 at 12:31; Status Cancel Piperacillin Sod/ Tazobactam Sod/ Sodium Chloride (Zosyn/Iv Sodium Chloride 0.9 % 50ml) 50 ml @ 100 mls/hr Q6HRS IV Last administered on 11/10/16 05:36; Start 11/09/16 at 00:00 Calcium Acetate (Phoslo) 1,334 mg TIDWMEALS PO Last administered on 11/09/16 17 :00; Start 11/09/16 at 08:00 Non-Formulary Medication 1 each QTH PO ; Start 11/11/16 at 16:00; Status UNV Tizanidine HCl (Zanaflex) 4 mg PRN Q8HRS PRN PO MUSCLE SPASMS; Start 11/08/16 at 23:45 Furosemide (Lasix) 40 mg DAILY IVP Last administered on 11/09/16 10:05; Start 11/09/16 at 09:00; Stop 11/09/16 at 19:10; Status DC Ondansetron HCl (Zofran) 4 mg PRN Q6HRS PRN IV NAUSEA/VOMITING Last administered on 11/09/16 03:27; Start 11/09/16 at 02:45 Linezolid (Zyvox) 600 mg BID PO Last administered on 11/09/16 21:13; Start 11/09 at 10:00 Aspirin 325 mg 325 mg PRN DAILY PRN PO HEADACHE; Start 11/09/16 at 10:15 Albumin Human (Albuminar) 100 ml @ 100 mls/hr 1X ONCE IV Last administered on 11/09/16 13:42; Start 11/09/16 at 12:15; Stop 11/09/16 at 13:14; Status DC Famotidine (Pepcid) 20 mg BID PO Last administered on 11/09/16 21:12; Start 11/09/16 at 21:00; Stop 11/10/16 at 09:57; Status DC Polyethylene Glycol 17 gm 17 gm DAILY PO ; Start 11/10/16 at 09:00 Albumin Human (Albuminar) 100 ml @ 100 mls/hr Q12HR IV Last administered on 21:15; Start 11/09/16 at 21:00; Stop 11/10/16 at 22:00 Furosemide (Lasix) 80 mg Q12HR IVP Last administered on 11/09/16 22:43; Start 11/09/16 at 21:00; Stop 11/10/16 at 22:00 Furosemide (Lasix) 40 mg DAILY IVP ; Start 11/11/16 at 09:00 Sodium Chloride (Saline Mist Nasal) 1 arianna PRN Q1HR PRN NS NASAL CONGESTION; Start 11/10/16 at 08:00 Famotidine (Pepcid) 20 mg QHS PO ; Start 11/10/16 at 21:00 Tramadol HCl (Ultram) 50 mg PRN Q6HRS PRN PO MILD PAIN; Start 11/10/16 at 10:00 Active Scripts Active [place] 5-325 Tablet (Acetaminophen/Hydrocodone Bitart) 1 Each Tablet 1 Each PO Q6HRS PRN Reported Tizanidine Hcl 4 Mg Capsule 4 Mg PO PRN Q8HRS PRN Miralax (Polyethylene Glycol 3350) 17 Gm Powd.pack 1 Packet PO DAILY Cafergot Tablet (Ergotamine Tartrate/Caffeine) 1 Each Tablet 1 Each PO QTH Folic Acid 1 Mg Tablet 1 Tab PO DAILY Keflex (Cephalexin) 250 Mg Capsule 1 Cap PO Q12HR Calcium Acetate 667 Mg Tablet 2 Cap PO TIDWMEALS Harvoni 90-400 mg Tablet (Ledipasvir/Sofosbuvir) 1 Each Tablet 1 Tab PO DAILY Trazodone Hcl 50 Mg Tablet 1 Tab PO QHS B-1 (Thiamine HCl) 100 Mg Tablet 100 Mg PO DAILY Melatonin 3 Mg Tablet 2 Tab PO QHS Hydrocodone-Apap 5-325 (Hydrocodone Bit/Acetaminophen) 1 Each Tablet 1 Tab PO PRN Q4HRS PRN Tramadol Hcl 50 Mg Tablet 1 Tab PO PRN Q6HRS Vitals/I & O Vital Sign - Last 24 Hours 11/09/16 11/09/16 11/09/16 11/09/16 11:00 11:05 13:39 14:40 Temp 98.1 98.1 Pulse 101 Resp 26 22 22 B/P 141/95 Pulse Ox 98 98 99 O2 Delivery Nasal Cannula Nasal Cannula Nasal Cannula O2 Flow Rate 5.0 5.0 5.0 11/09/16 11/09/16 11/09/16 11/09/16 15:59 19:42 20:00 21:15 Temp 98.2 98.9 98.2 98.9 Pulse 80 85 Resp 24 B/P 144/98 144/95 Pulse Ox 99 93 O2 Delivery Nasal Cannula Venturi Mask Venturi Mask Simple Mask O2 Flow Rate 5.0 3.0 5.0 3.0 11/09/16 11/10/16 11/10/16 11/10/16 23:09 02:00 04:37 07:32 Temp 97.8 98.5 97.9 97.8 98.5 97.9 Pulse 87 85 86 Resp 24 B/P 136/98 138/99 146/113 Pulse Ox 90 92 85 O2 Delivery Venturi Mask Venturi Mask Venturi Mask Venturi Mask O2 Flow Rate 3.0 3.0 3.0 Intake and Output 11/09/16 11/09/16 11/10/16 15:00 23:00 07:00 Intake Total 150 ml 840 ml 1120 ml Output Total 475 ml Balance 150 ml 840 ml 645 ml FERNANDA ANDERSON MD Nov 10, 2016 10:23
[2016-11-10 10:31] VITALS: BP 137/102
[2016-11-10] MEDS: THIAMINE 100 MG TABLET. PO SCH (10:43)
[2016-11-10] MEDS: ALBUMIN HUMAN 25% 100 ML IV SCH ×2 (10:44→20:50)
[2016-11-10] MEDS: LINEZOLID 600 MG TABLET PO SCH ×2 (10:44→20:51)
[2016-11-10] MEDS: CALCIUM ACETATE 667 MG CAPSULE PO SCH ×3 (10:44→17:00)
[2016-11-10] MEDS: FUROSEMIDE 100 MG/10 ML VIAL IVP SCH ×2 (10:45→22:39)
--- NOTE | 2016-11-10 13:01 | PDOC ---
PROGRESS NOTES Chief Complaint Chief Complaint cc: sob A/P 1. Dyspnea Multifactorial. 2. Recent hx of pneumonia with parapneumonic, s/p chest tube with VAT 3. LE edema with ascites. 3. ? Pneumonia 4. physical debility 5. malnutrition 6. MAIA POA Plan on Zyvox /Zosyn iv lasix, intake and out put monitor electrolytes nephrology consult echo pending [facility] records reviewed, he was treated for MAIA with HD Insert Ar[place]o SW consult prognosis guarded. labs reviwed. prognosis guarded. History of Present Illness History of Present Illness sob no fever no chills appears very weak Vitals Vitals Vital Signs Date Time Temp Pulse Resp B/P Pulse Ox O2 Delivery O2 Flow Rate FiO2 11/10/16 12:02 20 97 Venturi Mask 3.0 11/10/16 10:31 98.3 82 137/102 98.3 Physical Exam General: Alert, Oriented X3, No acute distress Heart: Regular rate, Normal S1, Normal S2 Lungs: Clear Abdomen: Normal bowel sounds, Soft, Other (distended. ) Extremities: No clubbing, No cyanosis, Other (+3 edema, with ascites. ) Skin: Other (two healing wounds surreounded by mild erythema secondary to recent chest tube on right) Labs LABS Laboratory Tests Test 11/09/16 13:25 Troponin I Quantitative 0.130ng/mL (0.000-0.055) Comment Review of Relevant I have reviewed the following items kyra (where applicable) has been applied. Labs Laboratory Tests Test 11/08/16 17:27 11/08/16 20:20 11/09/16 03:54 11/09/16 09:30 O2 Saturation 98% (92-99) Arterial Blood pH 7.47 (7.35-7.45) Arterial Blood pCO2 at Patient Temp 37mmHg (35-46) Arterial Blood pO2 at Patient Temp 102mmHg (65-108) Arterial Blood HCO3 26mmol/L (21-28) Arterial Blood Base Excess 3mmol/L (-3-3) FiO2 36 Lactic Acid Level 1.5mmol/L (0.4-2.0) 1.1mmol/L (0.4-2.0) White Blood Count 8.6x10^3/uL (4.0-11.0) Red Blood Count 2.95x10^6/uL (4.30-5.70) Hemoglobin 8.5g/dL (13.0-17.5) Hematocrit 26.2% (39.0-53.0) Mean Corpuscular Volume 89fL (79-100) Mean Corpuscular Hemoglobin 29pg (25-35) Mean Corpuscular Hemoglobin Concent 32g/dL (31-37) Red Cell Distribution Width 18.0% (11.5-14.5) Platelet Count 144x10^3/uL (140-400) Neutrophils (%) (Auto) 70% (31-73) Lymphocytes (%) (Auto) 14% (24-48) Monocytes (%) (Auto) 13% (0-9) Eosinophils (%) (Auto) 2% (0-3) Basophils (%) (Auto) 1% (0-3) Neutrophils # (Auto) 6.0x10^3uL (1.8-7.7) Lymphocytes # (Auto) 1.2x10^3/uL (1.0-4.8) Monocytes # (Auto) 1.1x10^3/uL (0.0-1.1) Eosinophils # (Auto) 0.1x10^3/uL (0.0-0.7) Basophils # (Auto) 0.1x10^3/uL (0.0-0.2) Sodium Level 141mmol/L (136-145) Potassium Level 4.0mmol/L (3.5-5.1) Chloride Level 103mmol/L (98-107) Carbon Dioxide Level 28mmol/L (21-32) Anion Gap 10 (6-14) Blood Urea Nitrogen 66mg/dL (8-26) Creatinine 2.2mg/dL (0.7-1.3) Estimated GFR (Cockcroft-Gault) 30.8 Glucose Level 126mg/dL (70-99) Calcium Level 8.8mg/dL (8.5-10.1) Troponin I Quantitative 0.146ng/mL (0.000-0.055) 0.137ng/mL (0.000-0.055) Albumin 2.7g/dL (3.4-5.0) HIV-1 Antibody Non reactive (Non Reactive) Test 11/09/16 13:25 Troponin I Quantitative 0.130ng/mL (0.000-0.055) Laboratory Tests Test 11/09/16 13:25 Troponin I Quantitative 0.130ng/mL (0.000-0.055) Medications Current Medications Furosemide (Lasix) 40 mg 1X ONCE IVP Last administered on 11/08/16 17:26; Start 11/08/16 at 16:45; Stop 11/08/16 at 16:48; Status DC Enoxaparin Sodium (Lovenox 40mg Syringe) 40 mg Q24H SQ Last administered on 11/08 17:26; Start 11/08/16 at 17:00 Acetaminophen/ Hydrocodone Bitart (Lortab 5/325) 1 tab PRN Q4HRS PRN PO MODERATE-SEVERE PAIN Last administered on 11/10/16 11:00; Start 11/08/16 at 18:15 Acetaminophen/ Hydrocodone Bitart (Lortab 5/325) 1 tab Q6HRS PRN PO PAIN; Start 11/08/16 at 18:15; Stop 11/08/16 at 18:15; Status DC Thiamine HCl (Vitamin B-1) 100 mg DAILY PO Last administered on 11/10/16 10:43 ; Start 11/09/16 at 09:00 Tramadol HCl (Ultram) 50 mg PRN Q6HRS PO ; Start 11/08/16 at 18:15; Stop at 09:58; Status DC Trazodone HCl (Desyrel) 50 mg QHS PO Last administered on 11/09/16 21:12; Start 11/08/16 at 21:00 Non-Formulary Medication 1 tab DAILY PO ; Start 11/09/16 at 09:00; Status UNV Non-Formulary Medication 2 tab QHS PO ; Start 11/08/16 at 21:00; Status UNV Alprazolam (Xanax) 0.5 mg PRN Q6HRS PRN PO ANXIETY / AGITATION Last administered on 11/08/16 19:38; Start 11/08/16 at 19:15 Vancomycin HCl (Vanco Per Pharmacy) 1 each PRN DAILY PRN MC SEE COMMENTS Last administered on 11/08/16 20:42; Start 11/08/16 at 20:30; Stop 11/09/16 at 09:44; Status DC Piperacillin Sod/ Tazobactam Sod 1 each 1 each PRN DAILY PRN MC SEE COMMENTS; Start 11/08/16 at 20:30 Vancomycin HCl/ Sodium Chloride (Iv Sodium Chloride 0.9% 500ml Bag) 500 ml @ 250 mls/hr Q24H IV ; Start 11/09/16 at 13:00; Stop 11/09/16 at 13:00; Status DC Vancomycin HCl 1 each 1 each 1X ONCE MC ; Start 11/10/16 at 12:30; Stop 11/10/16 at 12:31; Status Cancel Piperacillin Sod/ Tazobactam Sod/ Sodium Chloride (Zosyn/Iv Sodium Chloride 0.9 % 50ml) 50 ml @ 100 mls/hr Q6HRS IV Last administered on 11/10/16 10:45; Start 11/09/16 at 00:00 Calcium Acetate (Phoslo) 1,334 mg TIDWMEALS PO Last administered on 11/10/16 10 :44; Start 11/09/16 at 08:00 Non-Formulary Medication 1 each QTH PO ; Start 11/11/16 at 16:00; Status UNV Tizanidine HCl (Zanaflex) 4 mg PRN Q8HRS PRN PO MUSCLE SPASMS; Start 11/08/16 at 23:45 Furosemide (Lasix) 40 mg DAILY IVP Last administered on 11/09/16 10:05; Start 11/09/16 at 09:00; Stop 11/09/16 at 19:10; Status DC Ondansetron HCl (Zofran) 4 mg PRN Q6HRS PRN IV NAUSEA/VOMITING Last administered on 11/09/16 03:27; Start 11/09/16 at 02:45 Linezolid (Zyvox) 600 mg BID PO Last administered on 11/10/16 10:44; Start 11/09 at 10:00 Aspirin 325 mg 325 mg PRN DAILY PRN PO HEADACHE; Start 11/09/16 at 10:15 Albumin Human (Albuminar) 100 ml @ 100 mls/hr 1X ONCE IV Last administered on 11/09/16 13:42; Start 11/09/16 at 12:15; Stop 11/09/16 at 13:14; Status DC Famotidine (Pepcid) 20 mg BID PO Last administered on 11/09/16 21:12; Start 11/09/16 at 21:00; Stop 11/10/16 at 09:57; Status DC Polyethylene Glycol 17 gm 17 gm DAILY PO Last administered on 11/10/16 12:35; Start 11/10/16 at 09:00 Albumin Human (Albuminar) 100 ml @ 100 mls/hr Q12HR IV Last administered on 10:44; Start 11/09/16 at 21:00; Stop 11/10/16 at 22:00 Furosemide (Lasix) 80 mg Q12HR IVP Last administered on 11/10/16 10:45; Start 11/09/16 at 21:00; Stop 11/10/16 at 22:00 Furosemide (Lasix) 40 mg DAILY IVP ; Start 11/11/16 at 09:00 Sodium Chloride (Saline Mist Nasal) 1 arianna PRN Q1HR PRN NS NASAL CONGESTION; Start 11/10/16 at 08:00 Famotidine (Pepcid) 20 mg QHS PO ; Start 11/10/16 at 21:00 Tramadol HCl (Ultram) 50 mg PRN Q6HRS PRN PO MILD PAIN; Start 11/10/16 at 10:00 Active Scripts Active [place] 5-325 Tablet (Acetaminophen/Hydrocodone Bitart) 1 Each Tablet 1 Each PO Q6HRS PRN Reported Tizanidine Hcl 4 Mg Capsule 4 Mg PO PRN Q8HRS PRN Miralax (Polyethylene Glycol 3350) 17 Gm Powd.pack 1 Packet PO DAILY Cafergot Tablet (Ergotamine Tartrate/Caffeine) 1 Each Tablet 1 Each PO QTH Folic Acid 1 Mg Tablet 1 Tab PO DAILY Keflex (Cephalexin) 250 Mg Capsule 1 Cap PO Q12HR Calcium Acetate 667 Mg Tablet 2 Cap PO TIDWMEALS Harvoni 90-400 mg Tablet (Ledipasvir/Sofosbuvir) 1 Each Tablet 1 Tab PO DAILY Trazodone Hcl 50 Mg Tablet 1 Tab PO QHS B-1 (Thiamine HCl) 100 Mg Tablet 100 Mg PO DAILY Melatonin 3 Mg Tablet 2 Tab PO QHS Hydrocodone-Apap 5-325 (Hydrocodone Bit/Acetaminophen) 1 Each Tablet 1 Tab PO PRN Q4HRS PRN Tramadol Hcl 50 Mg Tablet 1 Tab PO PRN Q6HRS Vitals/I & O Vital Sign - Last 24 Hours 11/09/16 11/09/16 11/09/16 11/09/16 13:39 15:59 19:42 20:00 Temp 98.2 98.9 98.2 98.9 Pulse 80 85 Resp 22 20 18 B/P 144/98 144/95 Pulse Ox 98 99 93 O2 Delivery Nasal Cannula Nasal Cannula Venturi Mask Venturi Mask O2 Flow Rate 5.0 5.0 3.0 5.0 11/09/16 11/09/16 11/10/16 11/10/16 21:15 23:09 02:00 04:37 Temp 97.8 98.5 97.8 98.5 Pulse 87 85 Resp 24 22 20 B/P 136/98 138/99 Pulse Ox 90 92 O2 Delivery Simple Mask Venturi Mask Venturi Mask Venturi Mask O2 Flow Rate 3.0 3.0 3.0 11/10/16 11/10/16 11/10/16 11/10/16 07:32 10:31 11:00 12:02 Temp 97.9 98.3 97.9 98.3 Pulse 86 82 Resp 24 24 20 20 B/P 146/113 137/102 Pulse Ox 85 97 97 97 O2 Delivery Venturi Mask Venturi Mask Venturi Mask Venturi Mask O2 Flow Rate 3.0 3.0 3.0 3.0 Intake and Output 11/09/16 11/09/16 11/10/16 15:00 23:00 07:00 Intake Total 150 ml 840 ml 1120 ml Output Total 475 ml Balance 150 ml 840 ml 645 ml SELMA SÁNCHEZ MD Nov 10, 2016 13:00
[2016-11-10] MEDS: ONDANSETRON PF 4 MG/2 ML VIAL. IV PRN (14:07)
--- NOTE | 2016-11-10 15:52 | PDOC2 ---
CONSULT Date of Consult Date of Consult DATE: 11/10/16 TIME: 15:40 Reason for Consult Reason for Consult: David, edema Referring Physician Referring Physician: Dr Talamantes Identification/Chief Complaint Chief Complaint SOB/ Pn Problems: Source Source: Chart review, Patient History of Present Illness Reason for Visit: as dictated Extensively reviewed [facility] records Past Medical History Cardiovascular: CHF Heme/Onc: Other (Anemia) Psych: Anxiety, Other (Insomnia) Musculoskeletal: Other (Chronic pain) Past Surgical History Past Surgical History: Pacemaker Family History Family History: Hypertension Social History Lives: Homeless Current Medications Current Medications Current Medications Furosemide (Lasix) 40 mg 1X ONCE IVP Last administered on 11/08/16 17:26; Start 11/08/16 at 16:45; Stop 11/08/16 at 16:48; Status DC Enoxaparin Sodium (Lovenox 40mg Syringe) 40 mg Q24H SQ Last administered on 11/08 17:26; Start 11/08/16 at 17:00 Acetaminophen/ Hydrocodone Bitart (Lortab 5/325) 1 tab PRN Q4HRS PRN PO MODERATE-SEVERE PAIN Last administered on 11/10/16 11:00; Start 11/08/16 at 18:15 Acetaminophen/ Hydrocodone Bitart (Lortab 5/325) 1 tab Q6HRS PRN PO PAIN; Start 11/08/16 at 18:15; Stop 11/08/16 at 18:15; Status DC Thiamine HCl (Vitamin B-1) 100 mg DAILY PO Last administered on 11/10/16 10:43 ; Start 11/09/16 at 09:00 Tramadol HCl (Ultram) 50 mg PRN Q6HRS PO ; Start 11/08/16 at 18:15; Stop at 09:58; Status DC Trazodone HCl (Desyrel) 50 mg QHS PO Last administered on 11/09/16 21:12; Start 11/08/16 at 21:00 Non-Formulary Medication 1 tab DAILY PO ; Start 11/09/16 at 09:00; Status UNV Non-Formulary Medication 2 tab QHS PO ; Start 11/08/16 at 21:00; Status UNV Alprazolam (Xanax) 0.5 mg PRN Q6HRS PRN PO ANXIETY / AGITATION Last administered on 11/08/16 19:38; Start 11/08/16 at 19:15 Vancomycin HCl (Vanco Per Pharmacy) 1 each PRN DAILY PRN MC SEE COMMENTS Last administered on 11/08/16 20:42; Start 11/08/16 at 20:30; Stop 11/09/16 at 09:44; Status DC Piperacillin Sod/ Tazobactam Sod 1 each 1 each PRN DAILY PRN MC SEE COMMENTS; Start 11/08/16 at 20:30 Vancomycin HCl/ Sodium Chloride (Iv Sodium Chloride 0.9% 500ml Bag) 500 ml @ 250 mls/hr Q24H IV ; Start 11/09/16 at 13:00; Stop 11/09/16 at 13:00; Status DC Vancomycin HCl 1 each 1 each 1X ONCE MC ; Start 11/10/16 at 12:30; Stop 11/10/16 at 12:31; Status Cancel Piperacillin Sod/ Tazobactam Sod/ Sodium Chloride (Zosyn/Iv Sodium Chloride 0.9 % 50ml) 50 ml @ 100 mls/hr Q6HRS IV Last administered on 11/10/16 10:45; Start 11/09/16 at 00:00 Calcium Acetate (Phoslo) 1,334 mg TIDWMEALS PO Last administered on 11/10/16 10 :44; Start 11/09/16 at 08:00 Non-Formulary Medication 1 each QTH PO ; Start 11/11/16 at 16:00; Status UNV Tizanidine HCl (Zanaflex) 4 mg PRN Q8HRS PRN PO MUSCLE SPASMS; Start 11/08/16 at 23:45 Furosemide (Lasix) 40 mg DAILY IVP Last administered on 11/09/16 10:05; Start 11/09/16 at 09:00; Stop 11/09/16 at 19:10; Status DC Ondansetron HCl (Zofran) 4 mg PRN Q6HRS PRN IV NAUSEA/VOMITING Last administered on 11/10/16 14:07; Start 11/09/16 at 02:45 Linezolid (Zyvox) 600 mg BID PO Last administered on 11/10/16 10:44; Start 11/09 at 10:00 Aspirin 325 mg 325 mg PRN DAILY PRN PO HEADACHE; Start 11/09/16 at 10:15 Albumin Human (Albuminar) 100 ml @ 100 mls/hr 1X ONCE IV Last administered on 11/09/16 13:42; Start 11/09/16 at 12:15; Stop 11/09/16 at 13:14; Status DC Famotidine (Pepcid) 20 mg BID PO Last administered on 11/09/16 21:12; Start 11/09/16 at 21:00; Stop 11/10/16 at 09:57; Status DC Polyethylene Glycol 17 gm 17 gm DAILY PO Last administered on 11/10/16 12:35; Start 11/10/16 at 09:00 Albumin Human (Albuminar) 100 ml @ 100 mls/hr Q12HR IV Last administered on 10:44; Start 11/09/16 at 21:00; Stop 11/10/16 at 22:00 Furosemide (Lasix) 80 mg Q12HR IVP Last administered on 11/10/16 10:45; Start 11/09/16 at 21:00; Stop 11/10/16 at 22:00 Furosemide (Lasix) 40 mg DAILY IVP ; Start 11/11/16 at 09:00 Sodium Chloride (Saline Mist Nasal) 1 arianna PRN Q1HR PRN NS NASAL CONGESTION; Start 11/10/16 at 08:00 Famotidine (Pepcid) 20 mg QHS PO ; Start 11/10/16 at 21:00 Tramadol HCl (Ultram) 50 mg PRN Q6HRS PRN PO MILD PAIN Last administered on 11/10 13:26; Start 11/10/16 at 10:00 Active Scripts Active [place] 5-325 Tablet (Acetaminophen/Hydrocodone Bitart) 1 Each Tablet 1 Each PO Q6HRS PRN Reported Tizanidine Hcl 4 Mg Capsule 4 Mg PO PRN Q8HRS PRN Miralax (Polyethylene Glycol 3350) 17 Gm Powd.pack 1 Packet PO DAILY Cafergot Tablet (Ergotamine Tartrate/Caffeine) 1 Each Tablet 1 Each PO QTH Folic Acid 1 Mg Tablet 1 Tab PO DAILY Keflex (Cephalexin) 250 Mg Capsule 1 Cap PO Q12HR Calcium Acetate 667 Mg Tablet 2 Cap PO TIDWMEALS Harvoni 90-400 mg Tablet (Ledipasvir/Sofosbuvir) 1 Each Tablet 1 Tab PO DAILY Trazodone Hcl 50 Mg Tablet 1 Tab PO QHS B-1 (Thiamine HCl) 100 Mg Tablet 100 Mg PO DAILY Melatonin 3 Mg Tablet 2 Tab PO QHS Hydrocodone-Apap 5-325 (Hydrocodone Bit/Acetaminophen) 1 Each Tablet 1 Tab PO PRN Q4HRS PRN Tramadol Hcl 50 Mg Tablet 1 Tab PO PRN Q6HRS Allergies Allergies: Coded Allergies: omeprazole (Verified Allergy, Intermediate, 11/09/16) ROS Review of System GEN: subj Fevers no Chills EYES: no new Visual Complaints ENT: no EN Drainage no Hearing deficiets CVS: min Orthopnea + Pleuritic CP RESP: + SOB + KEITH GI: no Nausea no Vomiting : no Dysuria no Urgency x due to Field HEME: no easy bruising no Palp Ly Nodes NEURO no Focal Weakness no Sz PSYCH: no Suicidal Ideation ? Depression SKIN: no new Rashes ENDO: no Polyuria or Polydipsia no Hot/Cold Intolerance MU SK: occ Arthraigia no Myalgia Physical Exam Physical Exam General Appearance: Awake Alert Oriented x 3 In mod resp Distress; Ch Ill and fatigued appearing Eyes: VIsion Unchanged Conjunctiva Normal EN: No EN Drainage Mucous Memb. Neck: no JVD + JVP Supple no Thyromegaly CVS: S1 S2 ? Murmur No Gallop No Rub +2-3 Edema Resp: few RLL Rales no Rhonchi min Acc. Muscle use GI: BS +ve NO Bruit Non Tender + Distended : no CVA tenderness; no Suprapubic Tenderness SKIN: no Rashes Breast Exam deferred Mu.Sk: Adequate ROM min Muscle Atrophy Heme: Unable to palpate Obvious LAD no palp Splenomegaly NEURO: Good Strength and Tone Cranial Nerves II - XII grossly intact Psych: ? Depressed no Active hallucination Vital Signs Vital Signs Date Time Temp Pulse Resp B/P Pulse Ox O2 Delivery O2 Flow Rate FiO2 11/10/16 14:26 20 97 Venturi Mask 3.0 11/10/16 10:31 98.3 82 137/102 98.3 Assessment & Plan DAVID - d/d is wide to include: HRS, SIRS, Doubt Ac GN asso with Hep C. Current FLuid and E-lyte status does not necessitate emergent need for Dialysis. Will re-evaluate for Dialysis in am Anemia: check Iron; may need Epogen Transfuse with next HD as needed. - suspect due to recent Hospital stay. Pt was on HARVONI too - do not know how recently HTN: Current BP meds reviewed. See orders for changes. Anasarca - ? Due to liver failure; vs Portal vein thrombosis - Gentle Diuresis pending ECHO Resp Distress - ? due to Pn - defer to PUlm Discussed Plan of Care and prognosis etc. at length with family. Labs Labs Laboratory Tests Test 11/08/16 17:27 11/08/16 20:20 11/09/16 03:54 11/09/16 09:30 O2 Saturation 98% (92-99) Arterial Blood pH 7.47 (7.35-7.45) Arterial Blood pCO2 at Patient Temp 37mmHg (35-46) Arterial Blood pO2 at Patient Temp 102mmHg (65-108) Arterial Blood HCO3 26mmol/L (21-28) Arterial Blood Base Excess 3mmol/L (-3-3) FiO2 36 Lactic Acid Level 1.5mmol/L (0.4-2.0) 1.1mmol/L (0.4-2.0) White Blood Count 8.6x10^3/uL (4.0-11.0) Red Blood Count 2.95x10^6/uL (4.30-5.70) Hemoglobin 8.5g/dL (13.0-17.5) Hematocrit 26.2% (39.0-53.0) Mean Corpuscular Volume 89fL (79-100) Mean Corpuscular Hemoglobin 29pg (25-35) Mean Corpuscular Hemoglobin Concent 32g/dL (31-37) Red Cell Distribution Width 18.0% (11.5-14.5) Platelet Count 144x10^3/uL (140-400) Neutrophils (%) (Auto) 70% (31-73) Lymphocytes (%) (Auto) 14% (24-48) Monocytes (%) (Auto) 13% (0-9) Eosinophils (%) (Auto) 2% (0-3) Basophils (%) (Auto) 1% (0-3) Neutrophils # (Auto) 6.0x10^3uL (1.8-7.7) Lymphocytes # (Auto) 1.2x10^3/uL (1.0-4.8) Monocytes # (Auto) 1.1x10^3/uL (0.0-1.1) Eosinophils # (Auto) 0.1x10^3/uL (0.0-0.7) Basophils # (Auto) 0.1x10^3/uL (0.0-0.2) Sodium Level 141mmol/L (136-145) Potassium Level 4.0mmol/L (3.5-5.1) Chloride Level 103mmol/L (98-107) Carbon Dioxide Level 28mmol/L (21-32) Anion Gap 10 (6-14) Blood Urea Nitrogen 66mg/dL (8-26) Creatinine 2.2mg/dL (0.7-1.3) Estimated GFR (Cockcroft-Gault) 30.8 Glucose Level 126mg/dL (70-99) Calcium Level 8.8mg/dL (8.5-10.1) Troponin I Quantitative 0.146ng/mL (0.000-0.055) 0.137ng/mL (0.000-0.055) Albumin 2.7g/dL (3.4-5.0) HIV-1 Antibody Non reactive (Non Reactive) Test 11/09/16 13:25 Troponin I Quantitative 0.130ng/mL (0.000-0.055) Images Images IMPRESSION: Small bilateral pleural effusions. Pleural thickening in the right lung, likely chronic. Patchy groundglass opacities in the left upper lobe. See above discussion. An inflammatory process is somewhat favored accounting for the infiltrates. Small amount of abdominal ascites Volume loss in the right lung most compatible with or scar or atelectasis. Pneumonia is not entirely excluded. SUZY IRENE MD Nov 10, 2016 15:52
[2016-11-10 16:31] LABS: BILIRUBIN,URINE NEGATIVE (NEG); GLUCOSE,URINE NEGATIVE (NEG); NITRITE,URINE NEGATIVE (NEG); PH,URINE 5.5; PROTEIN,URINE >=300 mg/dL (NEG-TRACE)
[2016-11-10 16:50] LABS: BACTERIA,URINE FEW /HPF (0-FEW); RBC,URINE TNTC /HPF (0-2)
[2016-11-10] MEDS: ENOXAPARIN 40 MG/0.4 ML DISP.SYRIN. SQ SCH (17:00)
[2016-11-10] MEDS ORDERED: BISACODYL 10 MG SUPP.RECT PR PRN ×2 (18:00→20:00)
--- NOTE | 2016-11-10 19:03 | CARD ---
APPROVED REPORT EXAM: Two-dimensional and M-mode echocardiogram with Doppler and color Doppler. Other Information Quality : Average Rhythm : NSR INDICATION Dyspnea Congestive Heart Failure 2D DIMENSIONS RVDd3.1 (2.9-3.5cm)Left Atrium(2D)4.9 (1.6-4.0cm) IVSd1.3 (0.7-1.1cm)Aortic Root(2D)3.2 (2.0-3.7cm) LVDd6.0 (3.9-5.9cm)LVOT Diameter2.3 (1.8-2.4cm) PWd1.3 (0.7-1.1cm)LVDs5.0 (2.5-4.0cm) FS (%) 16.2 %SV60.5 ml LVEF(%)25.0 (>50%) Mitral Valve MV E Lmcjkdxy64.0cm/sMV E Peak Gr.1mmHg MV DECEL [id number] A Lwndkxbt11.3cm/s MV E Mean Gr.2mmHgMV CRQ34ee E/A Ratio1.2MV A [id number] MVA (PHT)22.00cm2 Tricuspid Valve TR P. [id number]/sRAP [id number] TR Peak Gr.20yoSeZICV89hgBg Pulmonary Vein S1 Yzcfbpak58.1cm/sS2 Yqmwxalr07.63cm/s D2 Lgdpobua85.6cm/s LEFT VENTRICLE The Left Ventricle is dilated. There is borderline to mild concentric left ventricular hypertrophy. L eft ventricle systolic function is impaired. The Ejection Fraction is 25%. There is global hypokinesi s of the left ventricle. The left ventricular diastolic function and filling is normal for age. RIGHT VENTRICLE The right ventricle is dilated The right ventricular systolic function is normal. ATRIA The left atrium is dilated. The right atrium size is mildly dilated The interatrial septum is intact with no evidence for an atrial septal defect or patent foramen ovale as noted on 2-D or Doppler imagi ng. AORTIC VALVE The aortic valve is normal in structure The aortic valve is trileaflet. Doppler and Color Flow reveal ed mild aortic regurgitation. There is no significant aortic valvular stenosis. MITRAL VALVE Mitral annular calcification is moderate. The mitral valve leaflets are thickened. There is no mitral valve stenosis. Doppler and Color Flow revealed moderate mitral regurgitation. TRICUSPID VALVE The tricuspid valve is normal in structure. Doppler and Color Flow revealed moderate tricuspid regurg itation. The PA pressure was estimated at 54 mmHg. There is no tricuspid valve stenosis. PULMONIC VALVE The pulmonic valve is not well visualized. Doppler and Color Flow revealed no pulmonic valvular regur gitation. There is no pulmonic valvular stenosis. GREAT VESSELS The aortic root is normal in size. Normal pulmonary venous flow (Doppler). The IVC is dilated and col lapses <50% with inspiration. PERICARDIAL EFFUSION There is no evidence of significant pericardial effusion. Critical Notification Critical Value: No <Conclusion> The Left Ventricle is dilated. Left ventricle systolic function is impaired. The Ejection Fraction is 25%. The right ventricle is dilated The right atrium size is mildly dilated Doppler and Color Flow revealed mild aortic regurgitation. Mitral annular calcification is moderate. The mitral valve leaflets are thickened. Doppler and Color Flow revealed moderate mitral regurgitation. Doppler and Color Flow revealed moderate tricuspid regurgitation. The PA pressure was estimated at 54 mmHg. The pulmonic valve is not well visualized. There is no evidence of significant pericardial effusion.
[2016-11-10 20:30] VITALS: BP 152/102
[2016-11-10] MEDS: traZODone 50 MG TABLET. PO SCH ×2 (20:50→21:00)
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
[2016-11-10] MEDS ORDERED: FAMOTIDINE 20 MG TABLET. PO SCH (21:00)
[2016-11-10 23:00] VITALS: BP 180/111
[2016-11-11] MEDS: PIPERACILLIN/TAZOBACTAM 3.375 GM in IV NORMAL SALINE 50ML 50 ML IV SCH ×2 (00:36→05:50)
[2016-11-11 03:00] VITALS: BP 181/119
[2016-11-11] MEDS: HYDROCODONE/APAP 5/325MG TABLET. PO PRN ×3 (04:27→16:19)
[2016-11-11 06:00] LABS: BASO # 0.1 x10^3/uL (0.0-0.2); BASO % 1 % (0-3); EOS % 3 % (0-3); HEMATOCRIT 25.9 % (39.0-53.0); HEMOGLOBIN 8.5 g/dL (13.0-17.5); LYMPH # 1.1 x10^3/uL (1.0-4.8); LYMPH % 16 % (24-48); MEAN CORPUSCULAR HEMOGLOBIN 29 pg (25-35); MEAN CORPUSCULAR HGB CONC 33 g/dL (31-37); MEAN CORPUSCULAR VOLUME 89 fL (79-100); MONO % 14 % (0-9); NEUT % 67 % (31-73); PLATELET COUNT 127 x10^3/uL (140-400); RED BLOOD COUNT 2.89 x10^6/uL (4.30-5.70); RED CELL DISTRIBUTION WIDTH 18.2 % (11.5-14.5); WHITE BLOOD COUNT 7.2 x10^3/uL (4.0-11.0)
[2016-11-11 06:10] LABS: CALCIUM 8.9 mg/dL (8.5-10.1); CREATININE 2.9 mg/dL (0.7-1.3); GFR 22.4
[2016-11-11 07:58] VITALS: BP 161/109
[2016-11-11] MEDS: CALCIUM ACETATE 667 MG CAPSULE PO SCH ×2 (08:44→12:01)
[2016-11-11] MEDS: POLYETHYLENE GLYCOL 3350 17 GM PACKET. PO SCH (08:45)
[2016-11-11] MEDS: THIAMINE 100 MG TABLET. PO SCH (08:45)
[2016-11-11] MEDS: LINEZOLID 600 MG TABLET PO SCH (08:45)
--- NOTE | 2016-11-11 08:50 | RAD ---
Renal sonography Clinical indications: Acute renal failure. Shortness of air. Weakness. Findings: The longitudinal and AP and transverse dimensions of the right kidney are 9.6 cm and 5.8 cm and 5.8 cm respectively. The longitudinal and AP and transverse dimensions of the left kidney are 13.9 cm and 4.8 cm and 5.6 cm respectively. No hydronephrosis or renal mass or perinephric fluid collection is seen on either side. Urinary bladder is decompressed due to an indwelling Arroyo catheter. Small amount of ascites is present. Small left-sided pleural effusion is seen. The spleen is enlarged measuring 17 cm. Splenic varices are present. IMPRESSION: Normal bilateral renal sonogram. Small amount of ascites. Small left pleural effusion. Splenomegaly with splenic varices. Findings may be seen with portal vein hypertension secondary to cirrhosis.
[2016-11-11] MEDS: NON FORMULARY ITEM (Ledipasvir/Sofosbuvir (Harvoni 90-400 mg Tablet) 1 TAB) PO SCH (09:00)
[2016-11-11] MEDS ORDERED: FUROSEMIDE 40 MG/4 ML VIAL IVP SCH (09:00)
--- NOTE | 2016-11-11 09:17 | PDOC ---
Infectious Disease Note Subjective Subjective corley placed. Still some SOA. bloody nose at times ROS ROS GEN: Denies fevers, chills, sweats HEENT: Denies blurred vision, sore throat CV: Denies chest pain RESP: Denies shortness of air, cough GI: Denies n/v/d NEURO: Denies confusion, dizziness MSK: Denies weakness, joint pain/swelling Vital Sign Vital Signs Vital Signs Date Time Temp Pulse Resp B/P Pulse Ox O2 Delivery O2 Flow Rate FiO2 11/11/16 08:54 95 Venturi Mask 3.0 11/11/16 07:58 97.8 83 26 161/109 97.8 Physical Exam PHYSICAL EXAM GENERAL: NAD, Alert, sitting up in bed HEENT: PERRL, OC/OP -clear NECK: Supple, no JVD, no LN LUNGS: Clear - on 02 HEART: S1S2, no gallop, no murmur ABD: Soft, NT, no organomegaly, no rebound Corley EXT: 1 to 2 plus edema, no cyanosis LOCK TECHNICIAN: Alert, oriented x 3, no focal neurologic deficit SKIN: No rash IV: ok Labs Lab Laboratory Tests Test 11/10/16 16:20 11/10/16 16:55 11/11/16 05:24 Urine Collection Type Unknown Urine Color Kristina Urine Clarity Cloudy Urine pH 5.5 Urine Specific [place] 1.020 Urine Protein >=300mg/dL (NEG-TRACE) Urine Glucose (UA) Negativemg/dL (NEG) Urine Ketones (Stick) Negativemg/dL (NEG) Urine Blood Large (NEG) Urine Nitrite Negative (NEG) Urine Bilirubin Negative (NEG) Urine Urobilinogen Dipstick 1.0mg/dL (0.2 mg/dL) Urine Leukocyte Esterase Small (NEG) Urine RBC Tntc/HPF (0-2) Urine WBC 11-20/HPF (0-4) Urine Bacteria Few/HPF (0-FEW) Urine Cellular Casts Occ/HPF Urine Hyaline Casts Many/HPF Urine Granular Casts Occasional/HPF Urine Mucus Slight/LPF Erythrocyte Sedimentation Rate 57 (0-15) White Blood Count 7.2x10^3/uL (4.0-11.0) Red Blood Count 2.89x10^6/uL (4.30-5.70) Hemoglobin 8.5g/dL (13.0-17.5) Hematocrit 25.9% (39.0-53.0) Mean Corpuscular Volume 89fL (79-100) Mean Corpuscular Hemoglobin 29pg (25-35) Mean Corpuscular Hemoglobin Concent 33g/dL (31-37) Red Cell Distribution Width 18.2% (11.5-14.5) Platelet Count 127x10^3/uL (140-400) Neutrophils (%) (Auto) 67% (31-73) Lymphocytes (%) (Auto) 16% (24-48) Monocytes (%) (Auto) 14% (0-9) Eosinophils (%) (Auto) 3% (0-3) Basophils (%) (Auto) 1% (0-3) Neutrophils # (Auto) 4.8x10^3uL (1.8-7.7) Lymphocytes # (Auto) 1.1x10^3/uL (1.0-4.8) Monocytes # (Auto) 1.0x10^3/uL (0.0-1.1) Eosinophils # (Auto) 0.2x10^3/uL (0.0-0.7) Basophils # (Auto) 0.1x10^3/uL (0.0-0.2) Sodium Level 138mmol/L (136-145) Potassium Level 4.0mmol/L (3.5-5.1) Chloride Level 100mmol/L (98-107) Carbon Dioxide Level 25mmol/L (21-32) Anion Gap 13 (6-14) Blood Urea Nitrogen 71mg/dL (8-26) Creatinine 2.9mg/dL (0.7-1.3) Estimated GFR (Cockcroft-Gault) 22.4 Glucose Level 129mg/dL (70-99) Calcium Level 8.9mg/dL (8.5-10.1) Objective Assessment Lactic acidosis - improved ? urinary retention - corley placed CHF EF 25 % Anasarca MAIA - worse ? Pneumonia H/o Staph aureus Plan Plan of Care Cont Zyvox F/u labs Saline nasal wash RAFY PATRICIA MD Nov 11, 2016 09:17
[2016-11-11] MEDS: SODIUM CHLORIDE 0.65% NASAL SPRAY 45ML BOTTLE. NS PRN ×2 (09:25→12:01)
--- NOTE | 2016-11-11 10:15 | PDOC ---
SUBJECTIVE ROS MAIA Remains SOB CVS: no Orthopnea, min CP RESP: + SOB, min KEITH GI: no Nausea, no Vomiting : no Dysuria, no Urgency OBJECTIVE Vital Signs Vital Signs Date Time Temp Pulse Resp B/P Pulse Ox O2 Delivery O2 Flow Rate FiO2 11/11/16 08:54 95 Venturi Mask 3.0 11/11/16 07:58 97.8 83 26 161/109 97.8 I & 0 Intake and Output 11/11/16 07:00 Intake Total 1000 ml Output Total 650 ml Balance 350 ml Intake Oral 900 ml IV Total 100 ml Output Urine Total 650 ml PHYSICAL EXAM Physical Exam General Appearance: Awake Alert Oriented x 3 In mod resp Distress; Ch Ill and fatigued appearing Eyes: VIsion Unchanged Conjunctiva Normal EN: No EN Drainage Mucous Memb. Neck: no JVD + JVP Supple no Thyromegaly CVS: S1 S2 ? Murmur No Gallop No Rub +2-3 Edema Resp: + Chuy LL Rales no Rhonchi min Acc. Muscle use GI: BS +ve NO Bruit Non Tender + Distended : no CVA tenderness; no Suprapubic Tenderness SKIN: no Rashes Breast Exam deferred - multiple tatoos Mu.Sk: Adequate ROM min Muscle Atrophy Heme: Unable to palpate Obvious LAD no palp Splenomegaly NEURO: Good Strength and Tone Cranial Nerves II - XII grossly intact Psych: ? Depressed no Active hallucination Assessment & Plan MAIA - d/d is wide to include: HRS, SIRS, ? Ac GN asso with Hep C, infection asso Gn and AIN from abx used at . Check CK, Current FLuid and E-lyte status does not necessitate emergent need for Dialysis. Will re-evaluate for Dialysis in am Proteinruia - ? Ac GN vs ATN - Discussed with the patient ref need for Renal Biopsy for diagnostic and prognostic purposes. D/d of current nephropathy discussed at length and potential treatment options would be based on findings. Risks of Bleeding, infection etc. Benefits of information to be gleaned from the biopsy and the procedure was explained to the patient who is hesitant to do so but will britta about it. Anemia: check Iron; start Epogen Transfuse as needed - suspect due to recent Hospital stay. Pt is on HARVONI too which can contribute to anemia? HTN: Current BP meds reviewed. See orders for changes. UDS Anasarca - ? Due to liver failure/ cirrhosis, Cmyopahty and/ or Portal vein thrombosis - Gentle Diuresis as emily but may worsen renal #s ceasar in the setting of Liver Dz - but may be needed to maintain resp status Resp Distress - ? due to Pn and or Cmyoaphty - defer to PUlm - Diuresis for now ; Previous alkalosis may be due to cirrhosis Discussed Plan of Care and prognosis etc. at length with pt at length COMMENT/RELEVANT DATA Meds Current Medications Medications (Trade) Dose Ordered Sig/Opal Start Time Stop Time Status Last Admin Dose Admin Acetaminophen/ Hydrocodone Bitart (Lortab 5/325) 1 tab Q6HRS PRN 11/08/16 18:15 11/08/16 18:15 DC Albumin Human (Albuminar) 100 ml @ 100 mls/hr Q12HR 11/09/16 21:00 11/10/16 22:00 DC 11/10/16 20:50 100 MLS/HR Alprazolam (Xanax) 0.5 mg PRN Q6HRS PRN 11/08/16 19:15 11/08/16 19:38 0.5 MG Aspirin (Ecotrin) 325 mg PRN DAILY PRN 11/09/16 10:15 Bisacodyl (Dulcolax Supp) 10 mg 1X PRN PRN 11/10/16 18:00 11/10/16 18:43 10 MG Calcium Acetate (Phoslo) 1,334 mg TIDWMEALS 11/09/16 08:00 11/11/16 08:44 1,334 MG Enoxaparin Sodium (Lovenox 40mg Syringe) 40 mg Q24H 11/08/16 17:00 11/08/16 17:26 40 MG Famotidine (Pepcid) 20 mg QHS 11/10/16 21:00 11/10/16 20:51 20 MG Furosemide (Lasix) 40 mg DAILY 11/11/16 09:00 11/11/16 08:45 40 MG Linezolid (Zyvox) 600 mg BID 11/09/16 10:00 11/11/16 08:45 600 MG Non-Formulary Medication 1 each QTH 11/11/16 16:00 UNV Ondansetron HCl (Zofran) 4 mg PRN Q6HRS PRN 11/09/16 02:45 11/10/16 14:07 4 MG Piperacillin Sod/ Tazobactam Sod 1 each 1 each PRN DAILY PRN 11/08/16 20:30 11/11/16 09:16 DC Piperacillin Sod/ Tazobactam Sod/ Sodium Chloride (Zosyn/Iv Sodium Chloride 0.9% 50ml) 50 ml @ 100 mls/hr Q6HRS 11/09/16 00:00 11/11/16 09:16 DC 11/11/16 05:50 100 MLS/HR Polyethylene Glycol 17 gm 17 gm DAILY 11/10/16 09:00 11/11/16 08:45 17 GM Sodium Chloride (Saline Mist Nasal) 1 arianna PRN Q1HR PRN 11/10/16 08:00 Thiamine HCl (Vitamin B-1) 100 mg DAILY 11/09/16 09:00 11/11/16 08:45 100 MG Tizanidine HCl (Zanaflex) 4 mg PRN Q8HRS PRN 11/08/16 23:45 Tramadol HCl (Ultram) 50 mg PRN Q6HRS PRN 11/10/16 10:00 11/10/16 13:26 50 MG Trazodone HCl (Desyrel) 50 mg QHS 11/08/16 21:00 11/09/16 21:12 50 MG Vancomycin HCl (Vanco Per Pharmacy) 1 each PRN DAILY PRN 11/08/16 20:30 11/09/16 09:44 DC 11/08/16 20:42 1 EACH Vancomycin HCl 1 each 1 each 1X ONCE 11/10/16 12:30 11/10/16 12:31 Cancel Vancomycin HCl/ Sodium Chloride (Iv Sodium Chloride 0.9% 500ml Bag) 500 ml @ 250 mls/hr Q24H 11/09/16 13:00 11/09/16 13:00 DC Lab Laboratory Tests Test 11/10/16 16:20 11/10/16 16:55 11/11/16 05:24 Urine Collection Type Unknown Urine Color Kristina Urine Clarity Cloudy Urine pH 5.5 Urine Specific [place] 1.020 Urine Protein >=300mg/dL (NEG-TRACE) Urine Glucose (UA) Negativemg/dL (NEG) Urine Ketones (Stick) Negativemg/dL (NEG) Urine Blood Large (NEG) Urine Nitrite Negative (NEG) Urine Bilirubin Negative (NEG) Urine Urobilinogen Dipstick 1.0mg/dL (0.2 mg/dL) Urine Leukocyte Esterase Small (NEG) Urine RBC Tntc/HPF (0-2) Urine WBC 11-20/HPF (0-4) Urine Bacteria Few/HPF (0-FEW) Urine Cellular Casts Occ/HPF Urine Hyaline Casts Many/HPF Urine Granular Casts Occasional/HPF Urine Mucus Slight/LPF Erythrocyte Sedimentation Rate 57 (0-15) White Blood Count 7.2x10^3/uL (4.0-11.0) Red Blood Count 2.89x10^6/uL (4.30-5.70) Hemoglobin 8.5g/dL (13.0-17.5) Hematocrit 25.9% (39.0-53.0) Mean Corpuscular Volume 89fL (79-100) Mean Corpuscular Hemoglobin 29pg (25-35) Mean Corpuscular Hemoglobin Concent 33g/dL (31-37) Red Cell Distribution Width 18.2% (11.5-14.5) Platelet Count 127x10^3/uL (140-400) Neutrophils (%) (Auto) 67% (31-73) Lymphocytes (%) (Auto) 16% (24-48) Monocytes (%) (Auto) 14% (0-9) Eosinophils (%) (Auto) 3% (0-3) Basophils (%) (Auto) 1% (0-3) Neutrophils # (Auto) 4.8x10^3uL (1.8-7.7) Lymphocytes # (Auto) 1.1x10^3/uL (1.0-4.8) Monocytes # (Auto) 1.0x10^3/uL (0.0-1.1) Eosinophils # (Auto) 0.2x10^3/uL (0.0-0.7) Basophils # (Auto) 0.1x10^3/uL (0.0-0.2) Sodium Level 138mmol/L (136-145) Potassium Level 4.0mmol/L (3.5-5.1) Chloride Level 100mmol/L (98-107) Carbon Dioxide Level 25mmol/L (21-32) Anion Gap 13 (6-14) Blood Urea Nitrogen 71mg/dL (8-26) Creatinine 2.9mg/dL (0.7-1.3) Estimated GFR (Cockcroft-Gault) 22.4 Glucose Level 129mg/dL (70-99) Calcium Level 8.9mg/dL (8.5-10.1) Other The Left Ventricle is dilated. Left ventricle systolic function is impaired. The Ejection Fraction is 25%. The right ventricle is dilated The right atrium size is mildly dilated Doppler and Color Flow revealed mild aortic regurgitation. Mitral annular calcification is moderate. The mitral valve leaflets are thickened. Doppler and Color Flow revealed moderate mitral regurgitation. Doppler and Color Flow revealed moderate tricuspid regurgitation. The PA pressure was estimated at 54 mmHg. The pulmonic valve is not well visualized. There is no evidence of significant pericardial effusion. SUZY IRENE MD Nov 11, 2016 10:15
[2016-11-11] MEDS ORDERED: MAGNESIUM SULFATE 2GM 50 ML IV PRN (10:30)
[2016-11-11 11:29] LABS: PROTHROMBIN TIME PATIENT 21.8 SEC (11.7-14.0)
--- NOTE | 2016-11-11 13:07 | PDOC ---
PROGRESS NOTES Subjective Subjective Patient continues to have multiple complaints including chronic pain and shortness of breath. No new cardiac complaints. Objective Objective Vital Signs Date Time Temp Pulse Resp B/P Pulse Ox O2 Delivery O2 Flow Rate FiO2 11/11/16 09:50 95 Venturi Mask 3.0 11/11/16 07:58 97.8 83 26 161/109 97.8 Intake and Output 11/11/16 07:00 Intake Total 1000 ml Output Total 650 ml Balance 350 ml Intake Oral 900 ml IV Total 100 ml Output Urine Total 650 ml Physical Exam Physical Exam Cardiac exam remains unchanged. Regular rate and rhythm with S1/S1 no murmurs gallops or rubs. No JVD. Lungs with equal air movement with fine rales. Patient has edema of the lower extremities and scrotum. Assessment Assessment Patient presented to the hospital with progressive weakness and shortness of breath secondary to acute on congestive heart failure. He is being treated for possible sepsis and was recently discharged from the hospital last week after treatment for a complicated pneumonia. He has multiple health issues including cirrhosis secondary to Hepatitis C with evidence of portal hypertension, chronic CHF with left ventricular dysfunction and EF of 25% s/p permanent pacemaker, MAIA with BUN of 71 and Creatine of 2.9. Clinically he has shown modest improvement but continues to have a multitude of complaints. His ACID was interrogated yesterday and showed that it is going bad and is now functioning in VVI mode (pacing only, with no defibrillation function) since October 14 and will need generator replacement. There were no episodes of AT/ AF recorded. Echocardiogram The Left Ventricle is dilated. Left ventricle systolic function is impaired. The Ejection Fraction is 25%. The right ventricle is dilated The right atrium size is mildly dilated Doppler and Color Flow revealed mild aortic regurgitation. Mitral annular calcification is moderate. The mitral valve leaflets are thickened. Doppler and Color Flow revealed moderate mitral regurgitation. Doppler and Color Flow revealed moderate tricuspid regurgitation. The PA pressure was estimated at 54 mmHg. The pulmonic valve is not well visualized. There is no evidence of significant pericardial effusion. Renal ultrasound Small amount of ascites. Small left pleural effusion. Splenomegaly with splenic varices. Findings may be seen with portal vein hypertension secondary to cirrhosis. Plan Plan of Care Patient is in need of a ACID generator change and is stable for transfer, but is still in need of inpatient care which [place] generator [place] replaced tomorrow. He was given 80 mg total lasix IV today and is to be transferred via EMS later today. [facility] for the consultation while at [facility]. Comment Review of Relevant I have reviewed the following items kyra (where applicable) has been applied. Labs Laboratory Tests Test 11/09/16 13:25 11/10/16 16:20 11/10/16 16:55 11/11/16 05:24 Troponin I Quantitative 0.130ng/mL (0.000-0.055) Urine Collection Type Unknown Urine Color Kristina Urine Clarity Cloudy Urine pH 5.5 Urine Specific [place] 1.020 Urine Protein >=300mg/dL (NEG-TRACE) Urine Glucose (UA) Negativemg/dL (NEG) Urine Ketones (Stick) Negativemg/dL (NEG) Urine Blood Large (NEG) Urine Nitrite Negative (NEG) Urine Bilirubin Negative (NEG) Urine Urobilinogen Dipstick 1.0mg/dL (0.2 mg/dL) Urine Leukocyte Esterase Small (NEG) Urine RBC Tntc/HPF (0-2) Urine WBC 11-20/HPF (0-4) Urine Bacteria Few/HPF (0-FEW) Urine Cellular Casts Occ/HPF Urine Hyaline Casts Many/HPF Urine Granular Casts Occasional/HPF Urine Mucus Slight/LPF Erythrocyte Sedimentation Rate 57 (0-15) C-Reactive Protein High Sensitivity 45.91mg/L (0.00-3.00) Complement C4 13mg/dL (14-44) White Blood Count 7.2x10^3/uL (4.0-11.0) Red Blood Count 2.89x10^6/uL (4.30-5.70) Hemoglobin 8.5g/dL (13.0-17.5) Hematocrit 25.9% (39.0-53.0) Mean Corpuscular Volume 89fL (79-100) Mean Corpuscular Hemoglobin 29pg (25-35) Mean Corpuscular Hemoglobin Concent 33g/dL (31-37) Red Cell Distribution Width 18.2% (11.5-14.5) Platelet Count 127x10^3/uL (140-400) Neutrophils (%) (Auto) 67% (31-73) Lymphocytes (%) (Auto) 16% (24-48) Monocytes (%) (Auto) 14% (0-9) Eosinophils (%) (Auto) 3% (0-3) Basophils (%) (Auto) 1% (0-3) Neutrophils # (Auto) 4.8x10^3uL (1.8-7.7) Lymphocytes # (Auto) 1.1x10^3/uL (1.0-4.8) Monocytes # (Auto) 1.0x10^3/uL (0.0-1.1) Eosinophils # (Auto) 0.2x10^3/uL (0.0-0.7) Basophils # (Auto) 0.1x10^3/uL (0.0-0.2) Sodium Level 138mmol/L (136-145) Potassium Level 4.0mmol/L (3.5-5.1) Chloride Level 100mmol/L (98-107) Carbon Dioxide Level 25mmol/L (21-32) Anion Gap 13 (6-14) Blood Urea Nitrogen 71mg/dL (8-26) Creatinine 2.9mg/dL (0.7-1.3) Estimated GFR (Cockcroft-Gault) 22.4 Glucose Level 129mg/dL (70-99) Calcium Level 8.9mg/dL (8.5-10.1) Test 11/11/16 10:55 Prothrombin Time 21.8SEC (11.7-14.0) Prothromb Time International Ratio 2.0 (0.8-1.1) Activated Partial Thromboplast Time 33SEC (24-38) Laboratory Tests Test 11/10/16 16:20 11/10/16 16:55 11/11/16 05:24 11/11/16 10:55 Urine Collection Type Unknown Urine Color Kristina Urine Clarity Cloudy Urine pH 5.5 Urine Specific [place] 1.020 Urine Protein >=300mg/dL (NEG-TRACE) Urine Glucose (UA) Negativemg/dL (NEG) Urine Ketones (Stick) Negativemg/dL (NEG) Urine Blood Large (NEG) Urine Nitrite Negative (NEG) Urine Bilirubin Negative (NEG) Urine Urobilinogen Dipstick 1.0mg/dL (0.2 mg/dL) Urine Leukocyte Esterase Small (NEG) Urine RBC Tntc/HPF (0-2) Urine WBC 11-20/HPF (0-4) Urine Bacteria Few/HPF (0-FEW) Urine Cellular Casts Occ/HPF Urine Hyaline Casts Many/HPF Urine Granular Casts Occasional/HPF Urine Mucus Slight/LPF Erythrocyte Sedimentation Rate 57 (0-15) C-Reactive Protein High Sensitivity 45.91mg/L (0.00-3.00) Complement C4 13mg/dL (14-44) White Blood Count 7.2x10^3/uL (4.0-11.0) Red Blood Count 2.89x10^6/uL (4.30-5.70) Hemoglobin 8.5g/dL (13.0-17.5) Hematocrit 25.9% (39.0-53.0) Mean Corpuscular Volume 89fL (79-100) Mean Corpuscular Hemoglobin 29pg (25-35) Mean Corpuscular Hemoglobin Concent 33g/dL (31-37) Red Cell Distribution Width 18.2% (11.5-14.5) Platelet Count 127x10^3/uL (140-400) Neutrophils (%) (Auto) 67% (31-73) Lymphocytes (%) (Auto) 16% (24-48) Monocytes (%) (Auto) 14% (0-9) Eosinophils (%) (Auto) 3% (0-3) Basophils (%) (Auto) 1% (0-3) Neutrophils # (Auto) 4.8x10^3uL (1.8-7.7) Lymphocytes # (Auto) 1.1x10^3/uL (1.0-4.8) Monocytes # (Auto) 1.0x10^3/uL (0.0-1.1) Eosinophils # (Auto) 0.2x10^3/uL (0.0-0.7) Basophils # (Auto) 0.1x10^3/uL (0.0-0.2) Sodium Level 138mmol/L (136-145) Potassium Level 4.0mmol/L (3.5-5.1) Chloride Level 100mmol/L (98-107) Carbon Dioxide Level 25mmol/L (21-32) Anion Gap 13 (6-14) Blood Urea Nitrogen 71mg/dL (8-26) Creatinine 2.9mg/dL (0.7-1.3) Estimated GFR (Cockcroft-Gault) 22.4 Glucose Level 129mg/dL (70-99) Calcium Level 8.9mg/dL (8.5-10.1) Prothrombin Time 21.8SEC (11.7-14.0) Prothromb Time International Ratio 2.0 (0.8-1.1) Activated Partial Thromboplast Time 33SEC (24-38) Medications Current Medications Furosemide (Lasix) 40 mg 1X ONCE IVP Last administered on 11/08/16 17:26; Start 11/08/16 at 16:45; Stop 11/08/16 at 16:48; Status DC Enoxaparin Sodium (Lovenox 40mg Syringe) 40 mg Q24H SQ Last administered on 11/08 17:26; Start 11/08/16 at 17:00 Acetaminophen/ Hydrocodone Bitart (Lortab 5/325) 1 tab PRN Q4HRS PRN PO MODERATE-SEVERE PAIN Last administered on 11/11/16 08:54; Start 11/08/16 at 18:15 Acetaminophen/ Hydrocodone Bitart (Lortab 5/325) 1 tab Q6HRS PRN PO PAIN; Start 11/08/16 at 18:15; Stop 11/08/16 at 18:15; Status DC Thiamine HCl (Vitamin B-1) 100 mg DAILY PO Last administered on 11/11/16 08:45 ; Start 11/09/16 at 09:00 Tramadol HCl (Ultram) 50 mg PRN Q6HRS PO ; Start 11/08/16 at 18:15; Stop at 09:58; Status DC Trazodone HCl (Desyrel) 50 mg QHS PO Last administered on 11/09/16 21:12; Start 11/08/16 at 21:00 Non-Formulary Medication 1 tab DAILY PO ; Start 11/09/16 at 09:00; Status UNV Non-Formulary Medication 2 tab QHS PO ; Start 11/08/16 at 21:00; Status UNV Alprazolam (Xanax) 0.5 mg PRN Q6HRS PRN PO ANXIETY / AGITATION Last administered on 11/08/16 19:38; Start 11/08/16 at 19:15 Vancomycin HCl (Vanco Per Pharmacy) 1 each PRN DAILY PRN MC SEE COMMENTS Last administered on 11/08/16 20:42; Start 11/08/16 at 20:30; Stop 11/09/16 at 09:44; Status DC Piperacillin Sod/ Tazobactam Sod 1 each 1 each PRN DAILY PRN MC SEE COMMENTS; Start 11/08/16 at 20:30; Stop 11/11/16 at 09:16; Status DC Vancomycin HCl/ Sodium Chloride (Iv Sodium Chloride 0.9% 500ml Bag) 500 ml @ 250 mls/hr Q24H IV ; Start 11/09/16 at 13:00; Stop 11/09/16 at 13:00; Status DC Vancomycin HCl 1 each 1 each 1X ONCE MC ; Start 11/10/16 at 12:30; Stop 11/10/16 at 12:31; Status Cancel Piperacillin Sod/ Tazobactam Sod/ Sodium Chloride (Zosyn/Iv Sodium Chloride 0.9 % 50ml) 50 ml @ 100 mls/hr Q6HRS IV Last administered on 11/11/16 05:50; Start 11/09/16 at 00:00; Stop 11/11/16 at 09:16; Status DC Calcium Acetate (Phoslo) 1,334 mg TIDWMEALS PO Last administered on 11/11/16 12 :01; Start 11/09/16 at 08:00 Non-Formulary Medication 1 each QTH PO ; Start 11/11/16 at 16:00; Status UNV Tizanidine HCl (Zanaflex) 4 mg PRN Q8HRS PRN PO MUSCLE SPASMS; Start 11/08/16 at 23:45 Furosemide (Lasix) 40 mg DAILY IVP Last administered on 11/09/16 10:05; Start 11/09/16 at 09:00; Stop 11/09/16 at 19:10; Status DC Ondansetron HCl (Zofran) 4 mg PRN Q6HRS PRN IV NAUSEA/VOMITING Last administered on 11/10/16 14:07; Start 11/09/16 at 02:45 Linezolid (Zyvox) 600 mg BID PO Last administered on 11/11/16 08:45; Start 11/09 at 10:00 Aspirin 325 mg 325 mg PRN DAILY PRN PO HEADACHE; Start 11/09/16 at 10:15 Albumin Human (Albuminar) 100 ml @ 100 mls/hr 1X ONCE IV Last administered on 11/09/16 13:42; Start 11/09/16 at 12:15; Stop 11/09/16 at 13:14; Status DC Famotidine (Pepcid) 20 mg BID PO Last administered on 11/09/16 21:12; Start 11/09/16 at 21:00; Stop 11/10/16 at 09:57; Status DC Polyethylene Glycol 17 gm 17 gm DAILY PO Last administered on 11/11/16 08:45; Start 11/10/16 at 09:00 Albumin Human (Albuminar) 100 ml @ 100 mls/hr Q12HR IV Last administered on 20:50; Start 11/09/16 at 21:00; Stop 11/10/16 at 22:00; Status DC Furosemide (Lasix) 80 mg Q12HR IVP Last administered on 11/10/16 22:39; Start 11/09/16 at 21:00; Stop 11/10/16 at 22:00; Status DC Furosemide (Lasix) 40 mg DAILY IVP Last administered on 11/11/16 08:45; Start 11/11/16 at 09:00 Sodium Chloride (Saline Mist Nasal) 1 arianna PRN Q1HR PRN NS NASAL CONGESTION Last administered on 11/11/16 12:01; Start 11/10/16 at 08:00 Famotidine (Pepcid) 20 mg QHS PO Last administered on 11/10/16 20:51; Start 11/10/16 at 21:00 Tramadol HCl (Ultram) 50 mg PRN Q6HRS PRN PO MILD PAIN Last administered on 11/10 13:26; Start 11/10/16 at 10:00 Bisacodyl (Dulcolax Supp) 10 mg 1X PRN PRN CO CONSTIPATION; Start 11/10/16 at 20 :00; Stop 11/10/16 at 20:00; Status DC Bisacodyl (Dulcolax Supp) 10 mg 1X PRN PRN CO CONSTIPATION Last administered on 11/10/16 18:43; Start 11/10/16 at 18:00 Darbepoetin Emir 60 mcg 60 mcg WEEKLYHS SQ ; Start 11/11/16 at 21:00 Magnesium Sulfate/ Dextrose (Magnesium Sulfate PREMIX 2GM) 50 ml @ 25 mls/hr PRN DAILY PRN IV for Mag < 1.7 on am labs; Start 11/11/16 at 10:30 Active Scripts Active [place] 5-325 Tablet (Acetaminophen/Hydrocodone Bitart) 1 Each Tablet 1 Each PO Q6HRS PRN Reported Tizanidine Hcl 4 Mg Capsule 4 Mg PO PRN Q8HRS PRN Miralax (Polyethylene Glycol 3350) 17 Gm Powd.pack 1 Packet PO DAILY Cafergot Tablet (Ergotamine Tartrate/Caffeine) 1 Each Tablet 1 Each PO QTH Folic Acid 1 Mg Tablet 1 Tab PO DAILY Keflex (Cephalexin) 250 Mg Capsule 1 Cap PO Q12HR Calcium Acetate 667 Mg Tablet 2 Cap PO TIDWMEALS Harvoni 90-400 mg Tablet (Ledipasvir/Sofosbuvir) 1 Each Tablet 1 Tab PO DAILY Trazodone Hcl 50 Mg Tablet 1 Tab PO QHS B-1 (Thiamine HCl) 100 Mg Tablet 100 Mg PO DAILY Melatonin 3 Mg Tablet 2 Tab PO QHS Hydrocodone-Apap 5-325 (Hydrocodone Bit/Acetaminophen) 1 Each Tablet 1 Tab PO PRN Q4HRS PRN Tramadol Hcl 50 Mg Tablet 1 Tab PO PRN Q6HRS Vitals/I & O Vital Sign - Last 24 Hours 11/10/16 11/10/16 11/10/16 11/10/16 13:26 14:26 20:30 20:35 Temp 97.1 97.1 Pulse 86 Resp 20 20 20 B/P 152/102 Pulse Ox 97 97 92 O2 Delivery Venturi Mask Venturi Mask Venturi Mask Venturi Mask O2 Flow Rate 3.0 3.0 3.0 3.0 11/10/16 11/10/16 11/11/16 11/11/16 21:02 23:00 03:00 04:27 Temp 98.4 97.9 98.4 97.9 Pulse 86 91 Resp 20 22 24 B/P 180/111 181/119 Pulse Ox 95 O2 Delivery Venturi Mask Venturi Mask Venturi Mask Venturi Mask O2 Flow Rate 3.0 3.0 3.0 2/9/17 2/9/17 2/9/17 2/9/17 07:58 08:00 08:54 09:50 Temp 97.8 97.8 Pulse 83 Resp 26 B/P 161/109 Pulse Ox 95 95 95 O2 Delivery Venturi Mask Venturi Mask Venturi Mask Venturi Mask O2 Flow Rate 3.0 3.0 3.0 3.0 Intake and Output 11/10/16 11/10/16 11/11/16 15:00 23:00 07:00 Intake Total 360 ml 410 ml 230 ml Output Total 650 ml Balance 360 ml 410 ml -420 ml FERNANDA ANDERSON MD Nov 11, 2016 13:07
--- NOTE | 2016-11-11 14:19 | RAD ---
Portable AP upright chest x-ray performed at 1328 Clinical indications: Shortness of breath Comparison: September 12, 2013. Findings: A moderate-sized right-sided pleural effusion is seen with associated compressive atelectasis or infiltrate of the right lung base. A small left-sided pleural effusion is seen. Bilateral perihilar interstitial pulmonary edema is seen. No pneumothorax is evident. A bipolar atrial-ventricular pacemaker is again noted. The heart size is prominent but stable. Mediastinum is unchanged. IMPRESSION: Moderate CHF. There are deformities of the lateral aspect of the right seventh and eighth ribs consistent with rib fractures which were not seen previously.
[2016-11-11] MEDS ORDERED: FUROSEMIDE 100 MG/10 ML VIAL IVP ONE (14:30)
[2016-11-11] MEDS ORDERED: FUROSEMIDE 40 MG/4 ML VIAL IVP ONE (15:30)
[2016-11-11] MEDS ORDERED: ASPI325T4 PO (15:35)
[2016-11-11] MEDS ORDERED: ALPR0.5T PO (15:35)
[2016-11-11 15:59] VITALS: BP 161/117
[2016-11-11] MEDS ORDERED: CAFFEINE PO SCH (16:00)
[2016-11-11] MEDS ORDERED: ERGOTAMINE TARTRATE PO SCH (16:00)
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
[2016-11-11] MEDS ORDERED: DARBEPOETIN ALFA 60 MCG/0.3 ML DISP.SYRIN. SQ SCH (21:00)
--- NOTE | 2016-11-12 04:17 | DS ---
DATE OF DISCHARGE: 11/11/2016 DISCHARGE DIAGNOSES: 1. Anasarca, severe cardiomyopathy with ejection fraction of 25%, recent history of pneumonia with parapneumonic effusion, status post VATS at . 2. Ascites. 3. Hepatitis cirrhosis. 4. Malnutrition. 5. Acute kidney injury. 6. Shortness of breath with respiratory failure. BRIEF HOSPITAL COURSE: A 60-year-old male patient admitted to the hospital after he was admitted to [facility]. He was treated for ATN and he was sent home with oral antibiotics; however, within few days the patient presented back to Emergency Room for shortness of breath. The patient had initial imaging studies, which is suggestive of chronic in nature and also had an ultrasound of the abdomen, which showed small amount of ascites with mild pleural effusion. The patient had a prior history of hepatitis C, cirrhosis, and his lower extremity swellings and anasarca could be due to multifactorial such as hypoalbuminemia, cirrhosis, and also part of cardiomyopathy. Today, the patient was evaluated by Cardiology, Dr. Myers. He recommended us to transfer this patient to [facility] for pacemaker change as pacemaker is not properly working. During hospitalization, he was treated with antibiotics such as Zyvox and Zosyn and also he was treated with IV diuretics. The patient declined to have a renal biopsy. At that time, he would like to take some time before he makes a decision about biopsy. Today, he appears to be stable for transfer to a medical center for further care. DISCHARGE PHYSICAL EXAMINATION: GENERAL: Alert, oriented x 3. HEART: S1, S2 present. LUNGS: Clear to auscultation. ABDOMEN: Soft, distended. EXTREMITIES: +2 edema is present from lower extremities to mid thighs. DISCHARGE DISPOSITION: [facility]. DISCHARGE CONDITION: Stable. MEDICATIONS: Reviewed and reconciled. Please see MRAD. PROGNOSIS: Guarded. Total time spent for discharge 35 minutes for the patient's education, counseling, and coordination of care. SELMA SÁNCHEZ MD DR: CISCO/jose JOB#: [id number] / [id number] RAPHAEL
== END 2016-11-11 16:30 | disposition short-term general hospital (02) | DRG 682 ==
LOC: 2 NORTH 16:18
PROVIDERS: ADMIT Internal Medicine; ATTEND Internal Medicine
DX: N17.0 Acute kidney failure with tubular necrosis (principal); I50.43 Acute on chronic combined systolic (congestive) and diastolic (congestive) heart failure; J96.90 Respiratory failure, unspecified, unspecified whether with hypoxia or hypercapnia; I42.9 Cardiomyopathy, unspecified; K76.6 Portal hypertension; R18.8 Other ascites; E46 Unspecified protein-calorie malnutrition; E87.2 Acidosis; F43.10 Post-traumatic stress disorder, unspecified; G89.29 Other chronic pain; I08.0 Rheumatic disorders of both mitral and aortic valves; F17.200 Nicotine dependence, unspecified, uncomplicated; F41.0 Panic disorder [episodic paroxysmal anxiety]; K74.60 Unspecified cirrhosis of liver; F32.9 Major depressive disorder, single episode, unspecified; F41.9 Anxiety disorder, unspecified; G43.909 Migraine, unspecified, not intractable, without status migrainosus; D64.9 Anemia, unspecified; I11.0 Hypertensive heart disease with heart failure; E88.09 Other disorders of plasma-protein metabolism, not elsewhere classified; B19.20 Unspecified viral hepatitis C without hepatic coma; G47.00 Insomnia, unspecified; M19.90 Unspecified osteoarthritis, unspecified site; Z59.0 Homelessness; Z82.49 Family history of ischemic heart disease and other diseases of the circulatory system; Z83.3 Family history of diabetes mellitus; Z95.0 Presence of cardiac pacemaker; Z68.30 Body mass index [BMI] 30.0-30.9, adult; Z88.8 Allergy status to other drugs, medicaments and biological substances; Z87.01 Personal history of pneumonia (recurrent)
CPT/HCPCS: 36415; 36600; 71010; 71250; 76770; 80048; 81001; 82040; 82595; 82805; 83605; 84484; 85027; 85610; 85651; 85730; 86141; 86160; 86703; 87086; 93306; J1650; J1940; J2405; J2543; P9046